=== PATIENT | male | born 1930 | race Caucasian/White ===

== ENCOUNTER 2017-05-15 10:30 | Emergency (ER) | payer MEDICARE, MEDICAID ==
--- NOTE | 2017-05-15 10:33 | EDM.PDOC ---
ED HPI GENERAL MEDICAL PROBLEM - General Chief Complaint: Respiratory Problem Stated Complaint: BY AMBULANCE Time Seen by Provider: 05/15/17 10:50 Source of Information: Reports: Patient, RN, RN Notes Reviewed - History of Present Illness INITIAL COMMENTS - FREE TEXT/NARRATIVE: Patient presents to ER per [facility] with c/o increased weakness. Family present states the patient has a history of COPD and diabetes. They states he coughs frequently, and has not been coughing any more than normal. Family and patient denies any sputum production. Patient c/o increased sob at times. admits to a temp of 99.3 this morning, but is afebrile at this time. Patient states he has not smoked for 2 days as he has been too weak to get outside to smoke. Patient denies chest pain, N/V/D. states am BS was 154 today, which is high for him. Onset: Gradual Onset Date: 05/13/17 Severity: Moderate Improves with: Reports: None Worsens with: Reports: None Associated Symptoms: Reports: Cough, Fever/Chills, Malaise, Shortness of Breath , Weakness - Related Data Allergies Allergy/AdvReac Type Severity Reaction Status Date / Time No Known Allergies Allergy Verified 05/15/17 10:37 Home Meds: Home Meds Furosemide [Lasix] 20 mg PO DAILY #30 tablet 11/04/13 [Rx] Glimepiride [Amaryl] 2 mg PO BRK #30 tablet 11/04/13 [Rx] Insulin Glarg,Human.Rec.Analog [Lantus Solostar] 15 unit SUBCUT DAILY #5 pen [Rx] Potassium Chloride [Klor-Con 10] 10 meq PO DAILY #30 tablet.er 11/04/13 [Rx] Albuterol [Proventil Neb Soln] 2.5 mg NEB Q4HR PRN 11/27/15 [History] Aspirin [Adult Low Dose Aspirin EC] 81 mg PO BEDTIME 11/27/15 [History] Lisinopril [Prinivil] 2.5 mg PO DAILY 11/27/15 [History] Metoprolol Tartrate 12.5 mg PO BID 11/27/15 [History] Budesonide [Pulmicort] 0.5 mg NEB BIDRT #60 neb 11/30/15 [Rx] Magnesium Oxide [Magnesium] 400 mg PO BEDTIME 05/15/17 [History] Past Medical History HEENT History: Reports: None Cardiovascular History: Reports: None Respiratory History: Reports: COPD Gastrointestinal History: Reports: None Genitourinary History: Reports: Prostate Disorder Musculoskeletal History: Reports: None Endocrine/Metabolic History: Reports: Diabetes, Type II Hematologic History: Reports: None Oncologic (Cancer) History: Reports: Basal Cell Carcinoma, Prostate Dermatologic History: Reports: Other (See Below) Other Dermatologic History: basal cell carcinoma - Infectious Disease History Infectious Disease History: Reports: None - Past Surgical History GI Surgical History: Reports: Hernia Repair/Other Social & Family History - Family History Cardiac: Reports: Hypertension, CT Oncologic: Reports: Other (See Below) Other Oncologic Family History: stomach - Tobacco Use Smoking Status *Q: Heavy Tobacco Smoker Years of Tobacco use: 55 Packs/Tins Daily: 1 Used Tobacco, but Quit: No Month Tobacco Last Used: recent Second Hand Smoke Exposure: No - Alcohol Use Days Per Week of Alcohol Use: 0 - Recreational Drug Use Recreational Drug Use: No ED ROS GENERAL - Review of Systems Review Of Systems: ROS reveals no pertinent complaints other than HPI. ED EXAM, GENERAL - Physical Exam Exam: See Below Exam Limited By: No Limitations General Appearance: Alert, WD/WN, Mild Distress Eye Exam: Bilateral Eye: Normal Inspection Ears: Normal External Exam, Hearing Grossly Normal Ear Exam: Bilateral Ear: TM normal Nose: Normal Inspection, Normal Mucosa, No Blood Throat/Mouth: Normal Inspection, Normal Lips, Normal Voice, No Airway Compromise Head: Atraumatic, Normocephalic Neck: Normal Inspection, Supple, Non-Tender, Full Range of Motion Cardiovascular: Normal Peripheral Pulses GI/Abdominal: Normal Bowel Sounds, Soft, Non-Tender, No Organomegaly, No Distention, No Abnormal Bruit, No Mass (Male) Exam: Deferred Rectal (Males) Exam: Deferred Back Exam: Normal Inspection, Full Range of Motion Extremities: Normal Inspection, Normal Range of Motion, Non-Tender, No Pedal Edema, Normal Capillary Refill Neurological: Alert, Oriented, Normal Cognition, No Motor/Sensory Deficits Psychiatric: Normal Affect, Normal Mood Skin Exam: Warm, Dry, Intact, Normal Color, No Rash Lymphatic: No Adenopathy EKG INTERPRETATION EKG Date: 05/15/17 Time: 12:03 Rhythm: NSR [place]: Normal P-Wave: Present QRS: Normal ST-T: Normal QT: Normal Course - Vital Signs Last Recorded V/S: Last Vital Signs Temp 97.5 F 05/15/17 10:51 Pulse 66 05/15/17 12:05 Resp 20 05/15/17 11:51 BP 130/73 05/15/17 11:51 Pulse Ox 99 05/15/17 12:05 - Orders/Labs/Meds Labs: Laboratory Tests 05/15/17 05/15/17 05/15/17 Range/Units 10:55 10:55 10:55 WBC 9.7 (5.0-10.0) 10^3/uL RBC 4.33 L (4.6-6.2) 10^6/uL Hgb 13.4 L (14.0-18.0) g/dL Hct 40.0 (40.0-54.0) % MCV 92.4 (80-100) fL MCH 30.9 (27.0-34.0) pg MCHC 33.5 (33.0-35.0) g/dL Plt Count 248 (150-450) 10^3/uL Neut % (Auto) 70.9 (42.2-75.2) % Lymph % (Auto) 18.9 L (20.5-50.1) % [place] % (Auto) 9.2 H (2-8) % Eos % (Auto) 0.8 L (1.0-3.0) % Baso % (Auto) 0.2 (0.0-1.0) % Sodium 134 L (135-145) mmol/L Potassium 4.5 (3.6-5.0) mmol/L Chloride 97 L (101-111) mmol/L Carbon Dioxide 28.0 (21.0-31.0) mmol/L Anion Gap 13.5 BUN 22 H (7-18) mg/dL Creatinine 1.1 (0.6-1.3) mg/dL Est Cr Clr Drug Dosing 56.49 mL/min Estimated GFR (MDRD) > 60 BUN/Creatinine Ratio 20.00 Glucose 119 H (74-105) mg/dL Lactic Acid 1.3 (0.5-2.2) mmol/L Calcium 8.9 (8.4-10.2) mg/dl Total Bilirubin 0.8 (0.2-1.0) mg/dL AST 24 (10-42) IU/L ALT 16 (10-60) IU/L Alkaline Phosphatase 60 (42-121) IU/L Troponin I (0.00-0.02) ng/ml Total Protein 7.1 (6.7-8.2) g/dl Albumin 3.9 (3.2-5.5) g/dl Globulin 3.2 Albumin/Globulin Ratio 1.22 Urine Color (YELLOW) Urine Appearance (CLEAR) Urine pH (5.0-9.0) Ur Specific [place] (1.005-1.030) Urine Protein (NEGATIVE) Urine Glucose (UA) (NEGATIVE) Urine Ketones (NEGATIVE) Urine Occult Blood (NEGATIVE) Urine Nitrite (NEGATIVE) Urine Bilirubin (NEGATIVE) Urine Urobilinogen (0.2-1.0) mg/dL Ur Leukocyte Esterase (NEGATIVE) Urine RBC /HPF Urine WBC (0-5/HPF) /HPF Ur Epithelial Cells /HPF Urine Bacteria (0-FEW/HPF) /HPF 05/15/17 05/15/17 Range/Units 10:55 11:33 WBC (5.0-10.0) 10^3/uL RBC (4.6-6.2) 10^6/uL Hgb (14.0-18.0) g/dL Hct (40.0-54.0) % MCV (80-100) fL MCH (27.0-34.0) pg MCHC (33.0-35.0) g/dL Plt Count (150-450) 10^3/uL Neut % (Auto) (42.2-75.2) % Lymph % (Auto) (20.5-50.1) % [place] % (Auto) (2-8) % Eos % (Auto) (1.0-3.0) % Baso % (Auto) (0.0-1.0) % Sodium (135-145) mmol/L Potassium (3.6-5.0) mmol/L Chloride (101-111) mmol/L Carbon Dioxide (21.0-31.0) mmol/L Anion Gap BUN (7-18) mg/dL Creatinine (0.6-1.3) mg/dL Est Cr Clr Drug Dosing mL/min Estimated GFR (MDRD) BUN/Creatinine Ratio Glucose (74-105) mg/dL Lactic Acid (0.5-2.2) mmol/L Calcium (8.4-10.2) mg/dl Total Bilirubin (0.2-1.0) mg/dL AST (10-42) IU/L ALT (10-60) IU/L Alkaline Phosphatase (42-121) IU/L Troponin I < 0.02 (0.00-0.02) ng/ml Total Protein (6.7-8.2) g/dl Albumin (3.2-5.5) g/dl Globulin Albumin/Globulin Ratio Urine Color Yellow (YELLOW) Urine Appearance Slightly cloudy (CLEAR) Urine pH 6.5 (5.0-9.0) Ur Specific [place] 1.015 (1.005-1.030) Urine Protein Trace H (NEGATIVE) Urine Glucose (UA) Negative (NEGATIVE) Urine Ketones Negative (NEGATIVE) Urine Occult Blood Trace-intact H (NEGATIVE) Urine Nitrite Negative (NEGATIVE) Urine Bilirubin Negative (NEGATIVE) Urine Urobilinogen 0.2 (0.2-1.0) mg/dL Ur Leukocyte Esterase Negative (NEGATIVE) Urine RBC 5-10 H /HPF Urine WBC 0-5 (0-5/HPF) /HPF Ur Epithelial Cells Rare /HPF Urine Bacteria Many H (0-FEW/HPF) /HPF Meds: Medications Discontinued Medications Generic Name Dose Route Start Last Admin Trade Name Freq PRN Reason Stop Dose Admin Albuterol/Ipratropium 3 ml 05/15/17 11:54 05/15/17 12:02 Duoneb 3.0-0.5 Mg/3 Ml NEB 05/15/17 11:55 3 ml ONETIME ONE Administration Ceftriaxone Sodium 1 gm/ 0 gm 05/15/17 12:10 05/15/17 12:19 Lidocaine HCl 2.1 ml IM 05/15/17 12:11 Not Given ONETIME ONE Ceftriaxone Sodium 1 gm/ 50 mls @ 100 mls/hr 05/15/17 12:13 05/15/17 12:18 Sodium Chloride IV 05/15/17 12:42 100 mls/hr ONETIME ONE Administration - Radiology Interpretation Free Text/Narrative:: Chest xray: COPD and pleural parenchymal scarring. No acute new cardiopulmonary abnormality since March 1016. See rad report Departure - Departure Time of Disposition: 13:00 Disposition: Home, Self-Care 01 Condition: Fair Clinical Impression: COPD (chronic obstructive pulmonary disease) Qualifiers: COPD type: COPD with acute exacerbation Qualified Code(s): J44.1 - Chronic obstructive pulmonary disease with (acute) exacerbation Pneumonia Qualifiers: Pneumonia type: due to unspecified organism Laterality: bilateral Lung location : lower lobe of lung Qualified Code(s): J18.9 - Pneumonia, unspecified organism - Discharge Information Instructions: Chronic Obstructive Pulmonary Disease Exacerbation, [id number] , Shortness of Breath, [id number], Community-Acquired Pneumonia, Adult, Easy- to-Read Referrals: Rosa M Conley MD [Primary Care Provider] - Forms: ED Department Discharge Additional Instructions: Azithromycin 250mg orally. Two tabs once today. One tab once daily for 4 days. Tessalon 100mg 1-2 caps orally three times daily as needed for cough. Robitussin AC over the counter as directed at night. Rest Follow up with primary care provider in 2-3 days.
[2017-05-15 11:25] LABS: CHLORIDE,CL 97 mmol/L (101-111); SODIUM,NA 134 mmol/L (135-145)
[2017-05-15 11:52] VITALS: BP 130/73
[2017-05-15] MEDS ORDERED: Albuterol/Ipratropium 3.0-0.5 MG/3 ML Neb Soln NEB ONE (11:54)
[2017-05-15] MEDS ORDERED: cefTRIAXone 1 GM, Lidocaine 1% 2.1 ML IM ONE ×2 (12:10)
[2017-05-15] MEDS ORDERED: cefTRIAXone 1 GM in Sodium Chloride 0.9% 50 ML IV ONE (12:13)
--- NOTE | 2017-05-15 13:03 | CR ---
CLINICAL HISTORY: 86-year-old male with shortness of breath. INTERPRETATION: No acute new cardiopulmonary abnormality identified in the interval since March 15 016 exam. Prominent proximal pulmonary artery segments and bibasilar atelectasis/fibrosis that was evident on e arlier exam. No cephalization of flow, signs of alveolar edema, cardiomegaly or dependent pleural effusion. No new lung mass, hilar lymphadenopathy or focal lobar pneumonia. CONCLUSION: COPD and pleural parenchymal scarring. No acute new cardiopulmonary abnormality since Mar.
--- NOTE | 2017-05-18 08:46 | EKG ---
05/15/2017- SAMUEL ABAD - EKG per my reading shows sinus rhythm at a rate of 77 with PACs. [facility] /[id number]
== END 2017-05-15 13:04 | disposition home or self-care (01) ==
LOC: DL.ED 10:30
DX: J44.1 Chronic obstructive pulmonary disease with (acute) exacerbation (principal); J18.9 Pneumonia, unspecified organism; E11.9 Type 2 diabetes mellitus without complications; Z85.46 Personal history of malignant neoplasm of prostate; Z85.828 Personal history of other malignant neoplasm of skin; F17.210 Nicotine dependence, cigarettes, uncomplicated; Z98.890 Other specified postprocedural states; Z79.82 Long term (current) use of aspirin; Z79.899 Other long term (current) drug therapy; Z79.4 Long term (current) use of insulin
CPT/HCPCS: 36415; 71020; 80053; 81001; 83605; 84484; 85025; 87040; 93005; 93010; 94640; 96365; 99285; J0696; J7050; 99284

== ENCOUNTER 2018-10-02 14:27 | Emergency (ER) | payer MEDICARE, MEDICAID ==
[~2018-10-02 14:27] MED LIST: Sodium Chloride 0.9% 10 ML Syringe FLUSH PRN
[2018-10-02 14:34] VITALS: BP 109/84
--- NOTE | 2018-10-02 14:45 | CR ---
Clinical history: 87-year-old male with chest pain Interpretation: Chronic platelike atelectasis right upper lobe and some middle lobe atelectasis/fibrosis accentuated by less than optimal inspiratory effort. No new signs of heart failure lung mass or focal lobar pneumonia this AP film is compared to PA chest film to May 2017. Normal cardiac silhouette and left-sided aortic arch. No pneumothorax. CONCLUSION: No acute new cardiopulmonary abnormality.
[2018-10-02 14:52] LABS: ANION GAP 15.1
[2018-10-02] MEDS ORDERED: methylPREDNISolone Sodium Succinate 125 MG/2 ML SDV IVPUSH ONE (15:17)
--- NOTE | 2018-10-02 15:24 | EDM.PDOC ---
ED HPI GENERAL MEDICAL PROBLEM - General Chief Complaint: Respiratory Problem Stated Complaint: POSSIBLE PNEUMONIA Time Seen by Provider: 10/02/18 14:40 Source of Information: Reports: Patient, EMS, EMS Notes Reviewed, RN, RN Notes Reviewed History Limitations: Reports: No Limitations - History of Present Illness INITIAL COMMENTS - FREE TEXT/NARRATIVE: Pt to ER per [facility] with c/o sore throat, SOB, cough producing white phlegm. Pt and family states that the patient is always SOB as he has a hx of COPD, on continuous O2 at home. Patient's daughter recently had Strep Throat. Patient family admits to low grade fever, and edema to ankles and feet bilaterally. Hx of CHF. Patient denies N/V, but admits to diarrhea today. Denies chest pain. Onset: Gradual - Related Data Allergies Allergy/AdvReac Type Severity Reaction Status Date / Time No Known Allergies Allergy Verified 10/02/18 14:30 Home Meds: Home Meds Furosemide [Lasix] 20 mg PO DAILY #30 tablet 11/04/13 [Rx] Glimepiride [Amaryl] 2 mg PO BRK #30 tablet 11/04/13 [Rx] Insulin Glarg,Human.Rec.Analog [Lantus Solostar] 15 unit SUBCUT DAILY #5 pen [Rx] Potassium Chloride [Klor-Con 10] 10 meq PO DAILY #30 tablet.er 11/04/13 [Rx] Albuterol [Proventil Neb Soln] 2.5 mg NEB Q4HR PRN 11/27/15 [History] Aspirin [Adult Low Dose Aspirin EC] 81 mg PO BEDTIME 11/27/15 [History] Lisinopril [Prinivil] 2.5 mg PO DAILY 11/27/15 [History] Metoprolol Tartrate 12.5 mg PO BID 11/27/15 [History] Budesonide [Pulmicort] 0.5 mg NEB BIDRT #60 neb 11/30/15 [Rx] Magnesium Oxide [Magnesium] 400 mg PO BEDTIME 05/15/17 [History] Past Medical History HEENT History: Reports: None Cardiovascular History: Reports: None, Heart Failure Respiratory History: Reports: COPD Gastrointestinal History: Reports: None Genitourinary History: Reports: Prostate Disorder Musculoskeletal History: Reports: None Neurological History: Reports: Other (See Below) Other Neuro History: unspecified palsy Endocrine/Metabolic History: Reports: Diabetes, Type II Hematologic History: Reports: None Oncologic (Cancer) History: Reports: Basal Cell Carcinoma, Prostate Dermatologic History: Reports: Other (See Below) Other Dermatologic History: basal cell carcinoma - Infectious Disease History Infectious Disease History: Reports: None - Past Surgical History GI Surgical History: Reports: Hernia Repair/Other Social & Family History - Family History Family Medical History: Unobtainable Cardiac: Reports: Hypertension, [place] Oncologic: Reports: Other (See Below) Other Oncologic Family History: stomach - Tobacco Use Smoking Status *Q: Current Every Day Smoker Years of Tobacco use: 60 Packs/Tins Daily: 0.5 - Caffeine Use Caffeine Use: Reports: Coffee - Recreational Drug Use Recreational Drug Use: No ED ROS GENERAL - Review of Systems Review Of Systems: ROS reveals no pertinent complaints other than HPI. ED EXAM, GENERAL - Physical Exam Exam: See Below Exam Limited By: No Limitations General Appearance: Alert, WD/WN, Moderate Distress (coughing) Eye Exam: Bilateral Eye: EOMI, Normal Inspection Ears: Normal External Exam, Hearing Grossly Normal Nose: Normal Inspection Throat/Mouth: Normal Voice, No Airway Compromise, Other (oropharynx erythematous ) Head: Atraumatic, Normocephalic Neck: Normal Inspection, Supple, Non-Tender, Full Range of Motion Respiratory/Chest: Decreased Breath Sounds, Crackles (throughout) Cardiovascular: Normal Peripheral Pulses, Regular Rate, Rhythm, No Murmur, No Rub. No: No Edema Peripheral Pulses: 1+: Dorsalis Pedis (L), Dorsalis Pedis (R), 2+: Radial (L), Radial (R) GI/Abdominal: Normal Bowel Sounds, Soft, Non-Tender (Male) Exam: Deferred Rectal (Males) Exam: Deferred Back Exam: Normal Inspection, Decreased Range of Motion Extremities: Pedal Edema (bilat, +2-3) Neurological: Alert, Oriented, Normal Cognition Psychiatric: Normal Affect, Normal Mood Skin Exam: Warm, Dry, Intact, Normal Color, No Rash Lymphatic: No Adenopathy Course - Vital Signs Last Recorded V/S: Last Vital Signs Temp 97.1 F 10/02/18 14:25 Pulse 78 10/02/18 14:25 Resp 20 10/02/18 14:25 BP 109/84 10/02/18 14:25 Pulse Ox 97 10/02/18 14:25 - Orders/Labs/Meds Orders: Active Orders 24 hr Category Date Time Status EKG Documentation Completion [RC] STAT Care 10/02/18 14:27 Active Peripheral IV Care [RC] . DIRECTED Care 10/02/18 14:27 Active CULTURE BLOOD [] Stat Lab 10/02/18 14:25 Received CULTURE BLOOD [] Stat Lab 10/02/18 14:47 Received CULTURE STREP A CONFIRMATION [] Stat Lab 10/02/18 14:20 Results STREP SCRN A RAPID W CULT CONF [] Stat Lab 10/02/18 14:20 Results Blood Culture x2 Reflex Set [OM.PC] Stat Oth 10/02/18 14:27 Ordered Peripheral IV Insertion Adult [OM.PC] Stat Oth 10/02/18 14:26 Ordered Labs: Laboratory Tests 10/02/18 10/02/18 10/02/18 Range/Units 14:25 14:25 14:25 WBC 7.0 (5.0-10.0) 10^3/uL RBC 4.32 L (4.6-6.2) 10^6/uL Hgb 13.0 L (14.0-18.0) g/dL Hct 39.5 L (40.0-54.0) % MCV 91.4 (80-100) fL MCH 30.1 (27.0-34.0) pg MCHC 32.9 L (33.0-35.0) g/dL Plt Count 207 (150-450) 10^3/uL Neut % (Auto) 73.3 (42.2-75.2) % Lymph % (Auto) 14.2 L (20.5-50.1) % [place] % (Auto) 10.2 H (2-8) % Eos % (Auto) 1.9 (1.0-3.0) % Baso % (Auto) 0.4 (0.0-1.0) % Sodium 136 (135-145) mmol/L Potassium 4.1 (3.6-5.0) mmol/L Chloride 101 (101-111) mmol/L Carbon Dioxide 24.0 (21.0-31.0) mmol/L Anion Gap 15.1 BUN 20 H (7-18) mg/dL Creatinine 1.2 (0.6-1.3) mg/dL Est Cr Clr Drug Dosing 49.40 mL/min Estimated GFR (MDRD) 58 BUN/Creatinine Ratio 16.66 Glucose 90 (74-105) mg/dL Lactic Acid 2.2 (0.5-2.2) mmol/L Calcium 8.5 (8.4-10.2) mg/dl Total Bilirubin 0.5 (0.2-1.0) mg/dL AST 32 (10-42) IU/L ALT 25 (10-60) IU/L Alkaline Phosphatase 64 (42-121) IU/L B-Natriuretic Peptide 34 (0-100) pg/ml Total Protein 6.8 (6.7-8.2) g/dl Albumin 3.6 (3.2-5.5) g/dl Globulin 3.2 Albumin/Globulin Ratio 1.13 Rapid Strep: Negative Influenza A & B: Negative Meds: Medications Discontinued Medications Generic Name Dose Route Start Last Admin Trade Name Freq PRN Reason Stop Dose Admin Ceftriaxone Sodium 1,000 mg/ 100 mls @ 200 mls/hr 10/02/18 15:17 10/02/18 15: 34 Sodium Chloride IV 10/02/18 15:46 200 mls/hr ONETIME ONE Administration Methylprednisolone Sodium Succinate 125 mg 10/02/18 15:17 Solu-Medrol IVPUSH 10/02/18 15:18 ONETIME ONE Sodium Chloride 10 ml 10/02/18 14:26 10/02/18 14:55 Saline Flush FLUSH 10 ml ASDIRECTED PRN Administration Keep Vein Open - Radiology Interpretation Free Text/Narrative:: Chest xray: No acute findings See rad report Departure - Departure Time of Disposition: 15:23 Disposition: Home, Self-Care 01 Condition: Fair Clinical Impression: COPD with exacerbation COPD (chronic obstructive pulmonary disease) Qualifiers: COPD type: unspecified COPD Qualified Code(s): J44.9 - Chronic obstructive pulmonary disease, unspecified - Discharge Information *PRESCRIPTION DRUG MONITORING PROGRAM REVIEWED*: No *COPY OF PRESCRIPTION DRUG MONITORING REPORT IN PATIENT SIVA: No Instructions: Chronic Obstructive Pulmonary Disease Exacerbation, [id number] , Shortness of Breath, Adult, [id number], Chronic Obstructive Pulmonary Disease, [id number], Upper Respiratory Infection, Adult, [id number] Referrals: Rosa M Conley MD [Primary Care Provider] - Forms: ED Department Discharge Additional Instructions: RX: Magic Mouthwash, Tessalon Perles, Azithromycin Follow up with your primary care facility May use Tylenol and/or Ibuprofen as directed for fever/pain - My Orders Last 24 Hours: My Active Orders 10/02/18 14:20 CULTURE STREP A CONFIRMATION [RM] Stat STREP SCRN A RAPID W CULT CONF [RM] Stat 10/02/18 14:25 CULTURE BLOOD [BC] Stat 10/02/18 14:26 Peripheral IV Insertion Adult [OM.PC] Stat 10/02/18 14:27 EKG Documentation Completion [RC] STAT Peripheral IV Care [RC] . DIRECTED Blood Culture x2 Reflex Set [OM.PC] Stat 10/02/18 14:47 CULTURE BLOOD [BC] Stat - Assessment/Plan Last 24 Hours: My Active Orders 10/02/18 14:20 CULTURE STREP A CONFIRMATION [RM] Stat STREP SCRN A RAPID W CULT CONF [RM] Stat 10/02/18 14:25 CULTURE BLOOD [BC] Stat 10/02/18 14:26 Peripheral IV Insertion Adult [OM.PC] Stat 10/02/18 14:27 EKG Documentation Completion [RC] STAT Peripheral IV Care [RC] . DIRECTED Blood Culture x2 Reflex Set [OM.PC] Stat 10/02/18 14:47 CULTURE BLOOD [BC] Stat
== END 2018-10-02 15:57 | disposition home or self-care (01) ==
LOC: EEVIPCON 14:27 → DL.ED 14:27
DX: J44.1 Chronic obstructive pulmonary disease with (acute) exacerbation (principal); E11.9 Type 2 diabetes mellitus without complications; F17.210 Nicotine dependence, cigarettes, uncomplicated; Z79.899 Other long term (current) drug therapy; Z79.82 Long term (current) use of aspirin; Z79.84 Long term (current) use of oral hypoglycemic drugs
CPT/HCPCS: 36415; 71045; 80053; 83605; 83880; 85025; 87040; 87077; 87081; 87186; 87430; 87804; 93005; 99285; J0696; J7050

== ENCOUNTER 2018-12-25 18:00 | Inpatient (IN) | payer MEDICARE, MEDICAID ==
[2018-12-25] MEDS ORDERED: Albuterol/Ipratropium 3.0-0.5 MG/3 ML Neb Soln NEB ONE (18:06)
--- NOTE | 2018-12-25 18:12 | EDM.PDOC ---
Scribed by Sunshine Robert 12/25/18 2946 for Josué Pedraza PA ED HPI GENERAL MEDICAL PROBLEM - General Chief Complaint: Respiratory Problem Stated Complaint: AMBULANCE/RESPIRATORY Time Seen by Provider: 12/25/18 18:03 Source of Information: Reports: Patient, EMS, EMS Notes Reviewed, RN, RN Notes Reviewed History Limitations: Reports: No Limitations - History of Present Illness INITIAL COMMENTS - FREE TEXT/NARRATIVE: This 88 yo male patient was brought to the ED by [facility] due to increased shortness of breath. The patient reports his shortness of breath started to get much worse today. The patient reports he has been taking all of his medications as prescribed. The patient reports his last breathing treatment was a 1500 today. The patient reports he has also been taking Mucinex. 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 Treatments - Related Data Allergies Allergy/AdvReac Type Severity Reaction Status Date / Time No Known Allergies Allergy Verified 12/25/18 18:17 Home Meds: Home Meds Furosemide [Lasix] 20 mg PO DAILY #30 tablet 11/04/13 [Rx] Glimepiride [Amaryl] 2 mg PO BRK #30 tablet 11/04/13 [Rx] Insulin Glarg,Human.Rec.Analog [Lantus Solostar] 15 unit SUBCUT DAILY #5 pen [Rx] Potassium Chloride [Klor-Con 10] 10 meq PO DAILY #30 tablet.er 11/04/13 [Rx] Albuterol [Proventil Neb Soln] 2.5 mg NEB Q4HR PRN 11/27/15 [History] Aspirin [Adult Low Dose Aspirin EC] 81 mg PO BEDTIME 11/27/15 [History] Lisinopril [Prinivil] 2.5 mg PO DAILY 11/27/15 [History] Metoprolol Tartrate 12.5 mg PO BID 11/27/15 [History] Magnesium Oxide [Magnesium] 400 mg PO BEDTIME 05/15/17 [History] Budesonide [Pulmicort] 0.5 mg NEB BID 12/25/18 [History] Past Medical History HEENT History: Reports: None Cardiovascular History: Reports: None, Heart Failure Respiratory History: Reports: COPD Gastrointestinal History: Reports: None Genitourinary History: Reports: Prostate Disorder Musculoskeletal History: Reports: None Neurological History: Reports: Other (See Below) Other Neuro History: unspecified palsy Endocrine/Metabolic History: Reports: Diabetes, Type II Hematologic History: Reports: None Oncologic (Cancer) History: Reports: Basal Cell Carcinoma, Prostate Dermatologic History: Reports: Other (See Below) Other Dermatologic History: basal cell carcinoma - Infectious Disease History Infectious Disease History: Reports: None - Past Surgical History GI Surgical History: Reports: Hernia Repair/Other Social & Family History - Family History Family Medical History: Unobtainable Cardiac: Reports: Hypertension, [place] Oncologic: Reports: Other (See Below) Other Oncologic Family History: stomach - Caffeine Use Caffeine Use: Reports: Coffee ED ROS GENERAL - Review of Systems Review Of Systems: ROS reveals no pertinent complaints other than HPI. ED EXAM, GENERAL - Physical Exam Exam: See Below Exam Limited By: No Limitations General Appearance: Alert, WD/WN, Moderate Distress Eye Exam: Bilateral Eye: EOMI, Normal Inspection, PERRL Ears: Normal External Exam, Normal Canal, Hearing Grossly Normal, Normal TMs Nose: Normal Inspection, Normal Mucosa, No Blood Throat/Mouth: Normal Inspection, Normal Lips, Normal Teeth, Normal Gums, Normal Oropharynx, Normal Voice, No Airway Compromise Head: Atraumatic, Normocephalic Neck: Normal Inspection, Supple, Non-Tender, Full Range of Motion Respiratory/Chest: Decreased Breath Sounds, Rhonchi Cardiovascular: No Gallop, No JVD, No Murmur, No Rub, Tachycardia GI/Abdominal: Normal Bowel Sounds, Soft, Non-Tender, No Organomegaly, No Distention, No Abnormal Bruit, No Mass (Male) Exam: Deferred Rectal (Males) Exam: Deferred Back Exam: Normal Inspection, Full Range of Motion, NT Extremities: Normal Range of Motion, Pedal Edema Neurological: Alert, Oriented, CN II-XII Intact, Normal Cognition Psychiatric: Normal Affect, Normal Mood Skin Exam: Warm, Dry, Intact, Normal Color, No Rash Lymphatic: No Adenopathy Course - Vital Signs Last Recorded V/S: Last Vital Signs Temp 37.1 C 12/25/18 18:01 Pulse 104 H 12/25/18 18:01 Resp 32 H 12/25/18 18:01 BP 165/98 H 12/25/18 18:01 Pulse Ox 94 L 12/25/18 18:01 - Orders/Labs/Meds Orders: Active Orders 24 hr Category Date Time Status EKG Documentation Completion [RC] URGENT Care 12/25/18 18:05 Ordered RT Aerosol Therapy [RC] ASDIRECTED Care 12/25/18 18:06 Ordered Chest 1V Frontal [CR] Urgent Exams 12/25/18 18:06 Ordered CULTURE BLOOD [BC] Stat Lab 12/25/18 18:05 Ordered CULTURE BLOOD [BC] Stat Lab 12/25/18 18:05 Ordered Azithromycin [Zithromax] 500 mg Med 12/25/18 19:05 Ordered Sodium Chloride 0.9% [Normal Saline] 250 ml IV ONETIME cefTRIAXone [Rocephin] 1 gm Med 12/25/18 19:05 Ordered Sodium Chloride 0.9% [Normal Saline] 50 ml IV ONETIME Blood Culture x2 Reflex Set [OM.PC] Stat Oth 12/25/18 18:05 Ordered Labs: Laboratory Tests 12/25/18 12/25/18 12/25/18 Range/Units 18:15 18:15 18:15 WBC 17.5 H (5.0-10.0) 10^3/uL RBC 4.63 (4.6-6.2) 10^6/uL Hgb 14.2 (14.0-18.0) g/dL Hct 42.5 (40.0-54.0) % MCV 91.8 (80-100) fL MCH 30.7 (27.0-34.0) pg MCHC 33.4 (33.0-35.0) g/dL Plt Count 227 (150-450) 10^3/uL Neut % (Auto) 86.1 H (42.2-75.2) % Lymph % (Auto) 7.5 L (20.5-50.1) % [place] % (Auto) 5.5 (2-8) % Eos % (Auto) 0.7 L (1.0-3.0) % Baso % (Auto) 0.2 (0.0-1.0) % Sodium (135-145) mmol/L Potassium (3.6-5.0) mmol/L Chloride (101-111) mmol/L Carbon Dioxide (21.0-31.0) mmol/L Anion Gap BUN (7-18) mg/dL Creatinine (0.6-1.3) mg/dL Est Cr Clr Drug Dosing mL/min Estimated GFR (MDRD) BUN/Creatinine Ratio Glucose (74-105) mg/dL Lactic Acid 1.4 (0.5-2.2) mmol/L Calcium (8.4-10.2) mg/dl Total Bilirubin (0.2-1.0) mg/dL AST (10-42) IU/L ALT (10-60) IU/L Alkaline Phosphatase (42-121) IU/L Troponin I (0.00-0.02) ng/ml B-Natriuretic Peptide 15 (0-100) pg/ml Total Protein (6.7-8.2) g/dl Albumin (3.2-5.5) g/dl Globulin Albumin/Globulin Ratio 05/14/19 Range/Units 18:15 WBC (5.0-10.0) 10^3/uL RBC (4.6-6.2) 10^6/uL Hgb (14.0-18.0) g/dL Hct (40.0-54.0) % MCV (80-100) fL MCH (27.0-34.0) pg MCHC (33.0-35.0) g/dL Plt Count (150-450) 10^3/uL Neut % (Auto) (42.2-75.2) % Lymph % (Auto) (20.5-50.1) % [place] % (Auto) (2-8) % Eos % (Auto) (1.0-3.0) % Baso % (Auto) (0.0-1.0) % Sodium 136 (135-145) mmol/L Potassium 4.5 (3.6-5.0) mmol/L Chloride 98 L (101-111) mmol/L Carbon Dioxide 28.0 (21.0-31.0) mmol/L Anion Gap 14.5 BUN 21 H (7-18) mg/dL Creatinine 1.1 (0.6-1.3) mg/dL Est Cr Clr Drug Dosing 52.91 mL/min Estimated GFR (MDRD) > 60 BUN/Creatinine Ratio 19.09 Glucose 144 H (74-105) mg/dL Lactic Acid (0.5-2.2) mmol/L Calcium 8.6 (8.4-10.2) mg/dl Total Bilirubin 0.6 (0.2-1.0) mg/dL AST 24 (10-42) IU/L ALT 20 (10-60) IU/L Alkaline Phosphatase 66 (42-121) IU/L Troponin I < 0.02 (0.00-0.02) ng/ml B-Natriuretic Peptide (0-100) pg/ml Total Protein 7.5 (6.7-8.2) g/dl Albumin 4.0 (3.2-5.5) g/dl Globulin 3.5 Albumin/Globulin Ratio 1.14 Meds: Medications Discontinued Medications Generic Name Dose Route Start Last Admin Trade Name Freq PRN Reason Stop Dose Admin Albuterol/Ipratropium 3 ml 12/25/18 18:06 12/25/18 18:06 Duoneb 3.0-0.5 Mg/3 Ml NEB 12/25/18 18:07 3 ml ONETIME ONE Administration Departure - Departure Time of Disposition: 19:06 Disposition: Admitted As Inpatient 68 Condition: Fair Clinical Impression: Community acquired pneumonia Qualifiers: Laterality: unspecified laterality Qualified Code(s): J18.9 - Pneumonia, unspecified organism - Discharge Information *PRESCRIPTION DRUG MONITORING PROGRAM REVIEWED*: Not Applicable *COPY OF PRESCRIPTION DRUG MONITORING REPORT IN PATIENT SIVA: Not Applicable Referrals: Rosa M Conley MD [Primary Care Provider] - Forms: ED Department Discharge Care Plan Goals: Discussed the examination, history, lab, EKG and x-ray results with Dr. Sanderson. Dr. Sanderson accepted the patient for continued evaluation and management as an acute inpatient at [facility]. The patient was started on IV Rocephin and IV Azithromycin prior to admission. - My Orders Last 24 Hours: My Active Orders 12/25/18 18:05 EKG Documentation Completion [RC] URGENT CULTURE BLOOD [BC] Stat CULTURE BLOOD [BC] Stat Blood Culture x2 Reflex Set [OM.PC] Stat 12/25/18 18:06 RT Aerosol Therapy [RC] ASDIRECTED Chest 1V Frontal [CR] Urgent 12/25/18 19:05 Azithromycin [Zithromax] 500 mg Sodium Chloride 0.9% [Normal Saline] 250 ml IV ONETIME cefTRIAXone [Rocephin] 1 gm Sodium Chloride 0.9% [Normal Saline] 50 ml IV ONETIME - Assessment/Plan Last 24 Hours: My Active Orders 12/25/18 18:05 EKG Documentation Completion [RC] URGENT CULTURE BLOOD [BC] Stat CULTURE BLOOD [BC] Stat Blood Culture x2 Reflex Set [OM.PC] Stat 12/25/18 18:06 RT Aerosol Therapy [RC] ASDIRECTED Chest 1V Frontal [CR] Urgent 12/25/18 19:05 Azithromycin [Zithromax] 500 mg Sodium Chloride 0.9% [Normal Saline] 250 ml IV ONETIME cefTRIAXone [Rocephin] 1 gm Sodium Chloride 0.9% [Normal Saline] 50 ml IV ONETIME I have read and agree with the documentation that has been completed regarding this visit. By signing this record, I attest that the documentation was completed in my physical presence and is an accurate record of the encounter.
[2018-12-25 18:50] LABS: ANION GAP 14.5; CHLORIDE,CL 98 mmol/L (101-111); SODIUM,NA 136 mmol/L (135-145)
[2018-12-25] MEDS ORDERED: cefTRIAXone 1 GM in Sodium Chloride 0.9% 50 ML IV ONE (19:05)
[2018-12-25] MEDS ORDERED: Azithromycin 500 MG in Sodium Chloride 0.9% 250 ML IV ONE (19:05)
--- NOTE | 2018-12-25 19:56 | PCM.HP ---
H&P History of Present Illness - General Date of Service: 12/25/18 Admit Problem/Dx: Shortness of breath - History of Present Illness Initial Comments - Free Text/Narative: Information is obtained from the patient, discussing with the family, ER provider, reviewing the [facility] records. 88-year-old with a history of COPD, home oxygen dependent. Using about 2.5 L nasal cannula oxygen continuously. He is minimally mobile. Only in the house, few steps. The patient has chronic lower extremity edema that they felt maybe of first lately. The patient felt somewhat warm on the day of admission. He was complaining of increased shortness of breath associated with the anxiety. Has chronic cough that did not change lately. No sick contact. No chest pain associated with this. Shortness of breath is moderate, worse with activity. Has been using Nebulizers which did not significantly change the symptoms - Related Data Allergies/Adverse Reactions: Allergies Allergy/AdvReac Type Severity Reaction Status Date / Time No Known Allergies Allergy Verified 12/25/18 19:52 Home Medications: Home Meds Furosemide [Lasix] 20 mg PO DAILY #30 tablet 11/04/13 [Rx] Glimepiride [Amaryl] 2 mg PO BRK #30 tablet 11/04/13 [Rx] Insulin Glarg,Human.Rec.Analog [Lantus Solostar] 15 unit SUBCUT DAILY #5 pen [Rx] Potassium Chloride [Klor-Con 10] 10 meq PO DAILY #30 tablet.er 11/04/13 [Rx] Albuterol [Proventil Neb Soln] 2.5 mg NEB Q4HR PRN 11/27/15 [History] Aspirin [Adult Low Dose Aspirin EC] 81 mg PO BEDTIME 11/27/15 [History] Lisinopril [Prinivil] 2.5 mg PO DAILY 11/27/15 [History] Metoprolol Tartrate 12.5 mg PO BID 11/27/15 [History] Magnesium Oxide [Magnesium] 250 mg PO BEDTIME 05/15/17 [History] Aspirin [Adult Low Dose Aspirin EC] 81 mg PO DAILY 12/25/18 [History] Benzonatate 100 mg PO TID 12/25/18 [History] Budesonide [Pulmicort] 0.5 mg NEB BID 12/25/18 [History] Ipratropium/Albuterol Sulfate [Iprat-Albut 0.5-3(2.5) mg/3 ml] 1 inh INH QID [History] guaiFENesin [Guaifenesin] 200 mg PO DAILY 12/25/18 [History] Past Medical History HEENT History: Reports: None Cardiovascular History: Reports: None, Heart Failure Respiratory History: Reports: COPD Other Respiratory History: emphysema Gastrointestinal History: Reports: None Genitourinary History: Reports: Prostate Disorder Musculoskeletal History: Reports: None Neurological History: Reports: Other (See Below) Other Neuro History: unspecified palsy Psychiatric History: Reports: Anxiety Endocrine/Metabolic History: Reports: Diabetes, Type II Hematologic History: Reports: None Immunologic History: Reports: None Oncologic (Cancer) History: Reports: Basal Cell Carcinoma, Prostate Dermatologic History: Reports: Other (See Below) Other Dermatologic History: basal cell carcinoma - Infectious Disease History Infectious Disease History: Reports: None - Past Surgical History GI Surgical History: Reports: Hernia Repair/Other Social & Family History - Family History Family Medical History: Unobtainable Cardiac: Reports: Hypertension, [place] Oncologic: Reports: Other (See Below) Other Oncologic Family History: stomach - Tobacco Use Smoking Status *Q: Current Every Day Smoker Years of Tobacco use: 40 Packs/Tins Daily: 0.5 - Caffeine Use Caffeine Use: Reports: Coffee - Recreational Drug Use Recreational Drug Use: No H&P Review of Systems - Review of Systems: Review Of Systems: See Below General: Reports: Fever (Subjectively warm), Malaise, Weakness Pulmonary: Reports: Shortness of Breath, Cough (Chronic). Denies: Sputum Cardiovascular: Reports: Edema (Somewhat worse than usual bilateral feet). Denies: Chest Pain Gastrointestinal: Denies: Abdominal Pain Genitourinary: Denies: Dysuria Psychiatric: Denies: Confusion Exam - Exam Exam: See Below - Vital Signs Vital Signs: Last Vital Signs Temp 37.1 C 12/25/18 19:24 Pulse 109 H 12/25/18 19:24 Resp 22 H 12/25/18 19:24 BP 170/87 H 12/25/18 19:24 Pulse Ox 93 L 12/25/18 19:24 Weight: 112.128 kg - Exam Quality Assessment: Supplemental Oxygen General: Alert, Oriented Neck: Supple Lungs: Normal Respiratory Effort, Decreased Breath Sounds. No: Wheezing Cardiovascular: Regular Rate, Regular Rhythm GI/Abdominal Exam: Normal Bowel Sounds, Soft, Non-Tender Extremities: Pedal Edema (Bilateral 1-2+) Skin: Warm, Dry Neuro Extensive - Mental Status: Alert, Oriented x3, Other (Anxious) - Patient Data Lab Results Last 24 hrs: Laboratory Results - last 24 hr 12/25/18 12/25/18 12/25/18 Range/Units 18:15 18:15 18:15 WBC 17.5 H (5.0-10.0) 10^3/uL RBC 4.63 (4.6-6.2) 10^6/uL Hgb 14.2 (14.0-18.0) g/dL Hct 42.5 (40.0-54.0) % MCV 91.8 (80-100) fL MCH 30.7 (27.0-34.0) pg MCHC 33.4 (33.0-35.0) g/dL Plt Count 227 (150-450) 10^3/uL Neut % (Auto) 86.1 H (42.2-75.2) % Lymph % (Auto) 7.5 L (20.5-50.1) % [place] % (Auto) 5.5 (2-8) % Eos % (Auto) 0.7 L (1.0-3.0) % Baso % (Auto) 0.2 (0.0-1.0) % Sodium (135-145) mmol/L Potassium (3.6-5.0) mmol/L Chloride (101-111) mmol/L Carbon Dioxide (21.0-31.0) mmol/L Anion Gap BUN (7-18) mg/dL Creatinine (0.6-1.3) mg/dL Est Cr Clr Drug Dosing mL/min Estimated GFR (MDRD) BUN/Creatinine Ratio Glucose (74-105) mg/dL Lactic Acid 1.4 (0.5-2.2) mmol/L Calcium (8.4-10.2) mg/dl Total Bilirubin (0.2-1.0) mg/dL AST (10-42) IU/L ALT (10-60) IU/L Alkaline Phosphatase (42-121) IU/L Troponin I (0.00-0.02) ng/ml B-Natriuretic Peptide 15 (0-100) pg/ml Total Protein (6.7-8.2) g/dl Albumin (3.2-5.5) g/dl Globulin Albumin/Globulin Ratio 12/25/18 Range/Units 18:15 WBC (5.0-10.0) 10^3/uL RBC (4.6-6.2) 10^6/uL Hgb (14.0-18.0) g/dL Hct (40.0-54.0) % MCV (80-100) fL MCH (27.0-34.0) pg MCHC (33.0-35.0) g/dL Plt Count (150-450) 10^3/uL Neut % (Auto) (42.2-75.2) % Lymph % (Auto) (20.5-50.1) % [place] % (Auto) (2-8) % Eos % (Auto) (1.0-3.0) % Baso % (Auto) (0.0-1.0) % Sodium 136 (135-145) mmol/L Potassium 4.5 (3.6-5.0) mmol/L Chloride 98 L (101-111) mmol/L Carbon Dioxide 28.0 (21.0-31.0) mmol/L Anion Gap 14.5 BUN 21 H (7-18) mg/dL Creatinine 1.1 (0.6-1.3) mg/dL Est Cr Clr Drug Dosing 52.91 mL/min Estimated GFR (MDRD) > 60 BUN/Creatinine Ratio 19.09 Glucose 144 H (74-105) mg/dL Lactic Acid (0.5-2.2) mmol/L Calcium 8.6 (8.4-10.2) mg/dl Total Bilirubin 0.6 (0.2-1.0) mg/dL AST 24 (10-42) IU/L ALT 20 (10-60) IU/L Alkaline Phosphatase 66 (42-121) IU/L Troponin I < 0.02 (0.00-0.02) ng/ml B-Natriuretic Peptide (0-100) pg/ml Total Protein 7.5 (6.7-8.2) g/dl Albumin 4.0 (3.2-5.5) g/dl Globulin 3.5 Albumin/Globulin Ratio 1.14 Result Diagrams: 12/25/18 18:15 12/25/18 18:15 Richy Results Last 24 hrs: Microbiology 12/25/18 18:20 Anaerobic Blood Culture - Final Blood - Venous - Lab Draw - Problem List (1) COPD with exacerbation SNOMED Code(s): 386053054 ICD Code: J44.1 - CHRONIC OBSTRUCTIVE PULMONARY DISEASE W (ACUTE) EXACERBATION Status: Acute Current Visit: No (2) Diabetes mellitus type 2 SNOMED Code(s): 09373251 ICD Code: E11.9 - TYPE 2 DIABETES MELLITUS WITHOUT COMPLICATIONS Status: Chronic Current Visit: No Onset Date: 10/23/13 Problem List Initiated/Reviewed/Updated: Yes Orders Last 24hrs: Active Orders 24 hr Category Date Time Status Glucose [Blood Glucose Check, Bedside] [RC] QIDACANDBED Care 12/25/18 19:48 Active RT Aerosol Therapy [RC] ASDIRECTED Care 12/25/18 18:06 Active RT Aerosol Therapy [RC] ASDIRECTED Care 12/25/18 19:47 Active Chest 1V Frontal [CR] Urgent Exams 12/25/18 18:06 Taken B-TYPE NATRIURETIC PEPTIDE,BNP [CHEM] AM Lab 12/27/18 05:11 Ordered BASIC METABOLIC PANEL,BMP [CHEM] AM Lab 12/26/18 05:15 Ordered CBC WITH AUTO DIFF [HEME] AM Lab 12/26/18 05:15 Ordered CULTURE BLOOD [BC] Stat Lab 12/25/18 18:15 Received CULTURE BLOOD [BC] Stat Lab 12/25/18 18:20 Results CULTURE SPUTUM + SMEAR [RM] Routine Lab 12/25/18 19:49 Ordered Albuterol/Ipratropium [DuoNeb 3.0-0.5 MG/3 ML] Med 12/25/18 19:46 Ordered 3 ml NEB Q2H PRN Albuterol/Ipratropium [DuoNeb 3.0-0.5 MG/3 ML] Med 12/26/18 01:00 Ordered 3 ml NEB Q6HRRT Aspirin [Halfprin] Med 12/25/18 21:00 Ordered 81 mg PO BEDTIME Azithromycin [Zithromax] 500 mg Med 12/25/18 19:05 Active Sodium Chloride 0.9% [Normal Saline] 250 ml IV ONETIME Azithromycin [Zithromax] 500 mg Med 12/26/18 20:00 Ordered Sodium Chloride 0.9% [Normal Saline] 250 ml IV Q24H Budesonide [Pulmicort] Med 12/25/18 21:00 Ordered 0.5 mg NEB BID Furosemide [Lasix] Med 12/25/18 21:00 Ordered 20 mg PO BID Glimepiride [Amaryl] Med 12/26/18 08:00 Ordered 2 mg PO BRK Insulin Glarg,Human.Rec.Analog [Lantus Solostar] Med 12/26/18 09:00 Ordered 15 unit SUBCUT DAILY Insulin Lispro [HumaLOG] Med 12/25/18 21:00 Ordered See Protocol SUBCUT ACBED Magnesium Oxide Med 12/25/18 19:45 Ordered 250 mg PO .EVENING Metoprolol Tartrate [Lopressor] Med 12/25/18 21:00 Ordered 12.5 mg PO BID Potassium Chloride [Klor-Con 10] Med 12/26/18 09:00 Ordered 10 meq PO DAILY cefTRIAXone [Rocephin] 1 gm Med 12/25/18 19:05 Active Sodium Chloride 0.9% [Normal Saline] 50 ml IV ONETIME cefTRIAXone [Rocephin] 1 gm Med 12/26/18 20:00 Ordered Sodium Chloride 0.9% [Normal Saline] 50 ml IV Q24H guaiFENesin [Mucinex] Med 12/25/18 21:00 Ordered 600 mg PO BID Blood Culture x2 Reflex Set [OM.PC] Stat Oth 12/25/18 18:05 Ordered Medication Orders Albuterol/Ipratropium (Duoneb 3.0-0.5 Mg/3 Ml) 3 ml NEB Q6HRRT [facility] Albuterol/Ipratropium (Duoneb 3.0-0.5 Mg/3 Ml) 3 ml NEB Q2H PRN PRN Reason: sob Aspirin (Halfprin) 81 mg PO BEDTIME [facility] Budesonide (Pulmicort) 0.5 mg NEB BID [facility] Furosemide (Lasix) 20 mg PO BID [facility] Glimepiride (Amaryl) 2 mg PO BRK [facility] Guaifenesin (Mucinex) 600 mg PO BID [facility] Azithromycin 500 mg/ Sodium (Chloride) 250 mls @ 250 mls/hr IV ONETIME ONE Stop: 12/25/18 20:04 Ceftriaxone Sodium 1 gm/ (Sodium Chloride) 50 mls @ 50 mls/hr IV ONETIME ONE Stop: 12/25/18 20:04 Last Admin: 12/25/18 19:24 Dose: 50 mls/hr Azithromycin 500 mg/ Sodium (Chloride) 250 mls @ 250 mls/hr IV Q24H [facility] Ceftriaxone Sodium 1 gm/ (Sodium Chloride) 50 mls @ 50 mls/hr IV Q24H [facility] Insulin Human Lispro (Humalog) 0 unit SUBCUT ACBED LAZARUS; Protocol Magnesium Oxide (Magnesium Oxide) 250 mg PO .EVENING [facility]AR[facility] Metoprolol Tartrate (Lopressor) 12.5 mg PO BID [facility] Non-Formulary Medication (Insulin Glarg,Human.Rec.Analog [Lantus Solostar]) 15 unit SUBCUT DAILY [facility] Potassium Chloride (Klor-Con 10) 10 meq PO DAILY [facility] Assessment/Plan Comment:: 88-year-old with a history of COPD, home oxygen dependent, chronic congestive heart failure presented with increased shortness of breath. The patient is noted to have leukocytosis. Increased lower extremity edema. Shortness of breath This is likely secondary to acute exacerbation of COPD He is intolerant to steroids, steroids causing him to be anxious Will use DuoNeb frequent nebulizers scheduled and when necessary Use Pulmicort Chronic hypoxemic respiratory failure Continuous oxygen supplement as needed There is no apparent pneumonia on chest x-ray but there is concern for acute bronchitis with subjective fever and leukocytosis Obtain blood culture Obtain sputum culture Start empirical treatment with azithromycin and Rocephin Increased lower extremity edema No apparent acute CHF exacerbation seen on CXR I will increase the patient's Lasix dose Follow electrolytes DVT prophylaxis will be with subcutaneous heparin
[2018-12-25] MEDS ORDERED: Docusate Sodium 100 MG Cap PO PRN (19:57)
[2018-12-25] MEDS ORDERED: Zolpidem 5 MG Tab PO PRN (19:57)
[2018-12-25] MEDS ORDERED: Acetaminophen 325 MG Tab PO PRN (19:57)
[2018-12-25] MEDS ORDERED: Azithromycin 500 MG in Sodium Chloride 0.9% 250 ML IV SCH (20:00)
[2018-12-25] MEDS: Albuterol/Ipratropium 3.0-0.5 MG/3 ML Neb Soln NEB PRN ×2 (20:26→23:53)
[2018-12-25] MEDS ORDERED: guaiFENesin 600 MG Tab.ER PO SCH (21:00)
[2018-12-25] MEDS: Aspirin 81 MG Tab.EC PO SCH (21:26)
[2018-12-25] MEDS: Furosemide 20 MG Tab PO SCH (21:26)
[2018-12-25] MEDS: diphenhydrAMINE 25 MG Tab PO PRN (21:26)
[2018-12-25] MEDS: Budesonide 0.5 MG/2 ML Neb Susp NEB SCH (21:30)
[2018-12-25] MEDS: Metoprolol Tartrate 25 MG Tab PO SCH (21:36)
[2018-12-25] MEDS: Insulin Lispro 100 Units/ML 3 ML Vial SUBCUT SCH (21:38)
[2018-12-25] MEDS: Heparin Sodium 5,000 Units/ML Vial SUBCUT SCH (21:38)
[2018-12-26] MEDS: Albuterol/Ipratropium 3.0-0.5 MG/3 ML Neb Soln NEB SCH ×4 (03:01→19:50)
[2018-12-26] MEDS: Heparin Sodium 5,000 Units/ML Vial SUBCUT SCH ×3 (05:50→21:39)
[2018-12-26 07:34] LABS: ANION GAP 17.2
[2018-12-26] MEDS: Insulin Glarg,Human.Rec.Analog 100 UNIT/ML ML SUBCUT SCH (08:29)
[2018-12-26] MEDS: Insulin Lispro 100 Units/ML 3 ML Vial SUBCUT SCH ×4 (08:29→21:26)
[2018-12-26] MEDS: Furosemide 20 MG Tab PO SCH ×2 (08:30→15:17)
[2018-12-26] MEDS: Metoprolol Tartrate 25 MG Tab PO SCH ×2 (08:30→21:30)
[2018-12-26] MEDS: Glimepiride 2 MG Tab PO SCH (08:31)
[2018-12-26] MEDS: Potassium Chloride 10 MEQ Tab.ER PO SCH (08:31)
[2018-12-26] MEDS: Budesonide 0.5 MG/2 ML Neb Susp NEB SCH ×2 (11:32→21:33)
[2018-12-26] MEDS ORDERED: cefTRIAXone 1 GM in Sodium Chloride 0.9% 50 ML IV SCH (19:00)
[2018-12-26] MEDS ORDERED: Azithromycin 500 MG in Sodium Chloride 0.9% 250 ML IV SCH (20:00)
[2018-12-26] MEDS: Aspirin 81 MG Tab.EC PO SCH (21:27)
[2018-12-26] MEDS: diphenhydrAMINE 25 MG Tab PO PRN (22:02)
[2018-12-27] MEDS: Albuterol/Ipratropium 3.0-0.5 MG/3 ML Neb Soln NEB SCH ×2 (01:16→07:24)
[2018-12-27] MEDS: Heparin Sodium 5,000 Units/ML Vial SUBCUT SCH (06:41)
[2018-12-27] MEDS: Insulin Lispro 100 Units/ML 3 ML Vial SUBCUT SCH ×2 (08:25→11:42)
[2018-12-27] MEDS: Potassium Chloride 10 MEQ Tab.ER PO SCH (08:27)
[2018-12-27] MEDS: Glimepiride 2 MG Tab PO SCH (08:27)
[2018-12-27] MEDS: Metoprolol Tartrate 25 MG Tab PO SCH (08:27)
[2018-12-27] MEDS: Furosemide 20 MG Tab PO SCH (08:27)
[2018-12-27] MEDS: Insulin Glarg,Human.Rec.Analog 100 UNIT/ML ML SUBCUT SCH (08:29)
[2018-12-27] MEDS: Budesonide 0.5 MG/2 ML Neb Susp NEB SCH (09:37)
[2018-12-27 12:34] VITALS: BP 118/68
--- NOTE | 2018-12-27 14:57 | PN ---
DATE: 12/26/2018 SUBJECTIVE: Mr. Solorio is an 88-year-old gentleman, well known to me from previous care. He has a long history of COPD with around 100-pack year history of smoking. He also has history of type 2 diabetes, dyslipidemia, and prostate cancer almost 20 years ago, which was treated with radical prostatectomy. As mentioned above, Mr. Solorio has a long history of COPD and is on chronic home oxygen therapy. We did discuss this in the room today with his daughters at times. They do turn the oxygen up and we suggested that they attempt to keep him on the lowest possible oxygen flow with sats 90% or better. He presented to the emergency department with increased shortness of breath and is currently being treated for an acute exacerbation of COPD with bronchitis. Chest x-ray at time of admission did not show any acute infiltrate and no pulmonary venous congestion. Daughters and he both pointed out that he is having increased lower extremity edema and apparently they "adjust his furosemide dose at home depending on how his legs look." Review of his testing from the time of his admission includes a single-view chest x-ray, which showed mild cardiomegaly and no acute infiltrate or pulmonary venous congestion. A 12-lead EKG in the ER had showed sinus tachycardia with ventricular rate of 109, otherwise no acute changes. Lab work showed an elevated white count of 19,000 with left shift, hemoglobin and hematocrit were 13.6 and 41. Chemistry showed BUN and creatinine of 22 and 1.2 with a GFR of 57. Blood sugars have been well controlled since admission. We will avoid repeat white count and differential for the morning. Review of his clinical data since the time of admission showed good oral intake. His appetite is improved. He is tolerating his diet. Vital signs have been stable and he has remained afebrile. PHYSICAL EXAMINATION: General: He is seated comfortably in his bed. 2 of his daughters are present, apparently he is having hard time sitting up due to his obesity and 1 of his daughters is literally sitting behind him supporting his back, but he was in good spirits and participated throughout the visit. Vital Signs: Blood pressure 127/65, pulse 85, respiratory rate 22, oxygen saturation 98% on 2.5 L. He was afebrile. HEENT: Unremarkable. ENT was clear. Chest: Showed diminished bilateral breath sounds and occasional coarse wheezing. Heart: Showed regular rate and rhythm. Abdomen: Morbidly obese and benign. Extremities: Showed chronic lower extremity edema. Neurologic: He is intact. IMPRESSION: An 88-year-old gentleman with long history of chronic obstructive pulmonary disease, is now admitted for an exacerbation. We will continue his present therapy with nebulized bronchodilators, nebulized Pulmicort, and his usual medications. We have ordered an incentive spirometer and flutter valve and he continues on chronic oxygen. Overall, he seems improved since time of admission and is eager to be discharged home. [facility] /[id number]
--- NOTE | 2018-12-27 15:46 | DISCH ---
ADMITTING DIAGNOSES: 1. Increasing shortness of breath. 2. Acute exacerbation of chronic obstructive pulmonary disease. 3. Acute on chronic hypoxic respiratory failure. DISCHARGE DIAGNOSES: 1. Acute chronic obstructive pulmonary disease exacerbation, improved. 2. Possible acute bronchitis, improved with IV antibiotics, switched him to oral Zithromax. 3. Acute on chronic hypoxic respiratory failure, improved and stable at his baseline. 4. Chronic congestive heart failure. HISTORY OF PRESENT ILLNESS: Mr. Ben Solorio is an 88-year-old male with a medical history significant for hypertension, hyperlipidemia, chronic congestive heart failure, chronic hypoxic respiratory failure, admitted to the hospital with increasing shortness of breath. His chest x-ray was within normal limits without any new infiltrates or pulmonary venous congestion. He was treated with Lasix, nebulizer treatment, and IV antibiotics and he responded well to the treatment. The patient's family member does not want him to be on oral steroids at the time of discharge. We switched him to oral antibiotics of Zithromax, and he will continue with the nebulizer treatment at home. He will continue with supplemental oxygen as needed to maintain a saturation of 95%. He and his family member wanted to be discharged home. He is discharged home in stable condition. He is advised to increase the Lasix to twice a day for the next 5 days and then resume it once a day dosing as he was noted to have edema to the lower extremities. He is advised to follow with his primary care physician in next 1 week of time. DISCHARGE MEDICATIONS: Include: 1. Proventil nebulizer every 4 hours as needed for shortness of breath. 2. Aspirin 81 mg at bedtime. 3. Zithromax 250 mg daily. 4. Benzonatate 100 mg 3 times a day. 5. Pulmicort nebulizer twice a day. 6. Lasix 20 mg twice a day for the next 5 days and then switch him to once a day dosing. 7. Amaryl 2 mg at breakfast. 8. Lantus 15 units daily. 9. Ipratropium/albuterol inhalation 4 times daily. 10.Magnesium oxide 250 mg daily. 11.Metoprolol 12.5 mg twice a day. 12.Potassium chloride 10 mEq daily. 13.Benadryl 25 mg at bedtime. PHYSICAL EXAMINATION ON THE DAY OF DISCHARGE: Vital Signs: Temperature of 97.4, pulse of 98, blood pressure of 119/71, respiratory rate of 20, saturating at 97% on 2.5 L of oxygen. General Appearance: The patient is well oriented to time, place, and person. Follows commands spontaneously. Cardiovascular System: Clear to auscultation bilaterally except for mild crepitations at the bases. No wheeze. Abdomen: Soft. Bowel sounds positive. Nontender. No rigidity. Extremities: Mild edema of bilateral lower extremities. Neurology: No gross focal neurological deficit. CONDITION ON ADMISSION: Poor. CONDITION ON DISCHARGE: Stable. DISPOSITION: Discharged to home. ACTIVITY: As tolerated. DIET: Cardiac healthy diet. FOLLOWUP: Follow with primary care physician in the next 1 week of time. Spent over 35 minutes of time in evaluating and treating this patient and explaining discharge instructions to the patient and family members at bedside. [facility] /[id number]
== END 2018-12-27 12:55 | disposition home or self-care (01) | DRG 190 ==
LOC: DL.ED 18:00 → DL.MS 19:20 → UNDOADMIN 19:20 → DL.MS 19:57 → EEVIPCON 19:57
PROVIDERS: ADMIT Internal Medicine; ATTEND Internal Medicine
DX: J44.1 Chronic obstructive pulmonary disease with (acute) exacerbation (principal); J96.21 Acute and chronic respiratory failure with hypoxia; J44.0 Chronic obstructive pulmonary disease with (acute) lower respiratory infection; J20.9 Acute bronchitis, unspecified; E78.5 Hyperlipidemia, unspecified; I50.9 Heart failure, unspecified; F41.9 Anxiety disorder, unspecified; E11.9 Type 2 diabetes mellitus without complications; F17.210 Nicotine dependence, cigarettes, uncomplicated; Z99.81 Dependence on supplemental oxygen; Z79.4 Long term (current) use of insulin; Z79.82 Long term (current) use of aspirin; Z79.899 Other long term (current) drug therapy; Z85.46 Personal history of malignant neoplasm of prostate
CPT/HCPCS: 36415; 71045; 80048; 80053; 82962; 83605; 83880; 84484; 85004; 85025; 87040; 93005; 94640; 99284-25; A9270-GY; J0456; J0696; J1644; J1815; J1815-GY; J7050; J7620-GY

== ENCOUNTER 2019-07-30 21:06 | Inpatient (IN) | payer OTHER, MEDICARE, MEDICAID ==
[2019-07-30] MEDS ORDERED: Furosemide 40 MG/4 ML VIAL IVPUSH ONE (21:16)
[2019-07-30] MEDS ORDERED: Levofloxacin/Dextrose 5%-Water 750 MG in Premix Bag 1 BAG IV ONE (21:40)
[2019-07-30 21:53] LABS: ANION GAP 15.4; CHLORIDE,CL 99 mmol/L (101-111); SODIUM,NA 136 mmol/L (135-145)
--- NOTE | 2019-07-30 22:25 | EDM.PDOC ---
ED HPI GENERAL MEDICAL PROBLEM - General Chief Complaint: Respiratory Problem Stated Complaint: LRA - AMBULANCE Time Seen by Provider: 07/30/19 21:10 Source of Information: Reports: Patient, EMS, Family, RN History Limitations: Reports: No Limitations - History of Present Illness INITIAL COMMENTS - FREE TEXT/NARRATIVE: ED via [facility] with c/o increased weakness past couple of days. Unable to get out of chair tonight. Daughter reports blood sugars running higher than usual, patient sweating more. Hx severe COPD. Cough wetter tonight than usual. No change in oxygen, home O2 at 2.5L. No known fever, Cough nonproductive. Appetite decreased. Difficulty with urination. Daughter reports that weekend, patient went 24 hours without voiding. no vomiting or diarrhea. - Related Data Allergies Allergy/AdvReac Type Severity Reaction Status Date / Time No Known Allergies Allergy Verified 07/30/19 22:59 Home Meds: Home Meds Glimepiride [Amaryl] 2 mg PO BRK #30 tablet 11/04/13 [Rx] Insulin Glarg,Human.Rec.Analog [Lantus Solostar] 15 unit SUBCUT DAILY #5 pen [Rx] Potassium Chloride [Klor-Con 10] 10 meq PO DAILY #30 tablet.er 11/04/13 [Rx] Albuterol [Proventil Neb Soln] 2.5 mg NEB Q4HR PRN 11/27/15 [History] Aspirin [Adult Low Dose Aspirin EC] 81 mg PO BEDTIME 11/27/15 [History] Metoprolol Tartrate 12.5 mg PO DAILY 11/27/15 [History] Magnesium Oxide [Magnesium] 250 mg PO BEDTIME 05/15/17 [History] Benzonatate 100 mg PO TID 12/25/18 [History] Budesonide [Pulmicort] 0.5 mg NEB BID 12/25/18 [History] Ipratropium/Albuterol Sulfate [Iprat-Albut 0.5-3(2.5) mg/3 ml] 1 inh INH QID [History] diphenhydrAMINE [Benadryl] 25 mg PO BEDTIME 12/25/18 [History] Furosemide [Lasix] 20 mg PO DAILY #30 tablet 12/27/18 [Rx] Past Medical History HEENT History: Reports: None Cardiovascular History: Reports: None, Heart Failure Respiratory History: Reports: COPD Other Respiratory History: emphysema Gastrointestinal History: Reports: None Genitourinary History: Reports: Prostate Disorder Musculoskeletal History: Reports: None Neurological History: Reports: Other (See Below) Other Neuro History: unspecified palsy Psychiatric History: Reports: Anxiety Endocrine/Metabolic History: Reports: Diabetes, Type II Hematologic History: Reports: None Immunologic History: Reports: None Oncologic (Cancer) History: Reports: Basal Cell Carcinoma, Prostate Dermatologic History: Reports: Other (See Below) Other Dermatologic History: basal cell carcinoma - Infectious Disease History Infectious Disease History: Reports: None - Past Surgical History Head Surgeries/Procedures: Reports: None GI Surgical History: Reports: Hernia Repair/Other Social & Family History - Family History Family Medical History: Unobtainable Cardiac: Reports: Hypertension, MD Oncologic: Reports: Other (See Below) Other Oncologic Family History: stomach - Tobacco Use Smoking Status *Q: Current Every Day Smoker Years of Tobacco use: 66 Packs/Tins Daily: 0.5 - Caffeine Use Caffeine Use: Reports: Coffee - Recreational Drug Use Recreational Drug Use: No ED ROS GENERAL - Review of Systems Review Of Systems: Comprehensive ROS is negative, except as noted in HPI. ED EXAM, GENERAL - Physical Exam Exam: See Below Exam Limited By: No Limitations General Appearance: Alert, Mild Distress Eye Exam: Bilateral Eye: EOMI Ears: Normal External Exam, Hearing Loss Nose: Normal Inspection Throat/Mouth: Normal Inspection Head: Atraumatic, Normocephalic Neck: Normal Inspection Respiratory/Chest: Rhonchi, Accessory Muscle Use, Prolonged Expiration Cardiovascular: Regular Rate, Rhythm, Tachycardia. No: No Edema (3+) GI/Abdominal: Normal Bowel Sounds Rectal (Males) Exam: Other (large soft rick BM) Neurological: Alert, Oriented, Normal Cognition Skin Exam: Warm, Dry, Pallor, Wound/Incision (right scapular, 2x2cm raised hemangioma type lesion, moist, scant bloody drainage on dressiong.) Course - Vital Signs Last Recorded V/S: Last Vital Signs Temp 98.9 F 07/30/19 23:27 Pulse 114 H 07/30/19 23:27 Resp 20 07/30/19 23:27 BP 127/81 07/30/19 23:27 Pulse Ox 90 L 07/31/19 01:15 - Orders/Labs/Meds Orders: Active Orders 24 hr Category Date Time Status Antonio Catheter Insertion [Insert Urinary Catheter] [OM. Care 07/30/19 21:24 Ordered PC] Stat Urinary Catheter Assessment [RC] 08,20 Care 07/30/19 21:25 Active Chest 1V Frontal [CR] Urgent Exams 07/30/19 21:14 Taken CULTURE BLOOD [BC] Stat Lab 07/30/19 21:24 Received CULTURE BLOOD [BC] Stat Lab 07/30/19 22:03 Received CULTURE SPUTUM + SMEAR [RM] Stat Lab 07/30/19 21:25 Ordered Blood Culture x2 Reflex Set [OM.PC] Stat Oth 07/30/19 21:15 Ordered Code Status [Resuscitation Status] Stat Resus Stat 07/30/19 21:29 Ordered Medication Orders Acetaminophen (Tylenol) 650 mg PO Q4H PRN PRN Reason: Pain (Mild 1-3)/fever Hydrocodone Bitart/Acetaminophen ([place] 325-10 Mg) 0.5 tab PO Q4H PRN PRN Reason: Pain (moderate 4-6) Albuterol (Proventil Neb Soln) 2.5 mg NEB Q4HR PRN PRN Reason: Shortness of Breath Albuterol/Ipratropium (Duoneb 3.0-0.5 Mg/3 Ml) 3 ml NEB Q6HRRT [facility] Last Admin: 07/31/19 01:12 Dose: 3 ml Aspirin (Halfprin) 81 mg PO BEDTIME [facility] Benzonatate (Tessalon Perles) 100 mg PO TID [facility] Budesonide (Pulmicort) 0.5 mg NEB BID [facility] Diphenhydramine HCl (Benadryl) 25 mg PO BEDTIME [facility] Docusate Sodium (Colace) 100 mg PO BID PRN PRN Reason: Constipation Enoxaparin Sodium (Lovenox) 40 mg SUBCUT DAILY [facility] Furosemide (Lasix) 20 mg PO DAILY [facility] Furosemide (Lasix) 20 mg PO BIDDIURETIC [facility] Stop: 08/04/19 14:01 Glimepiride (Amaryl) 2 mg PO BRK [facility] Ceftriaxone Sodium 1 gm/ (Sodium Chloride) 50 mls @ 50 mls/hr IV Q24H [facility] Azithromycin 500 mg/ Sodium (Chloride) 250 mls @ 250 mls/hr IV Q24H [facility] Insulin Glargine (Lantus) 15 unit SUBCUT DAILY [facility] Last Admin: 07/31/19 00:26 Dose: 15 units Lorazepam (Ativan) 0.5 mg PO BEDTIME PRN PRN Reason: Insomnia Last Admin: 07/31/19 00:29 Dose: 0.5 mg Magnesium Oxide (Magnesium Oxide) 250 mg PO BEDTIME [facility] Metoprolol Tartrate (Lopressor) 12.5 mg PO DAILY [facility] Nicotine (Habitrol) 7 mg TRDERM DAILY [facility] Potassium Chloride (Klor-Con 10) 10 meq PO DAILY [facility] Prednisone (Prednisone) 40 mg PO WITHBREAKFAST [facility] Sodium Chloride (Saline Flush) 10 ml FLUSH ASDIRECTED PRN PRN Reason: Keep Vein Open Labs: Laboratory Tests 07/30/19 07/30/19 07/30/19 Range/Units 21:24 21:24 21:24 WBC 15.1 H (5.0-10.0) 10^3/uL RBC 3.91 L (4.6-6.2) 10^6/uL Hgb 11.7 L D (14.0-18.0) g/dL Hct 35.1 L (40.0-54.0) % MCV 89.8 (80-100) fL MCH 29.9 (27.0-34.0) pg MCHC 33.3 (33.0-35.0) g/dL Plt Count 263 (150-450) 10^3/uL Neut % (Auto) 89.0 H (42.2-75.2) % Lymph % (Auto) 4.0 L (20.5-50.1) % [place] % (Auto) 6.8 (2-8) % Eos % (Auto) 0.1 L (1.0-3.0) % Baso % (Auto) 0.1 (0.0-1.0) % Sodium 136 (135-145) mmol/L Potassium 4.4 (3.6-5.0) mmol/L Chloride 99 L (101-111) mmol/L Carbon Dioxide 26.0 (21.0-31.0) mmol/L Anion Gap 15.4 BUN 33 H (7-18) mg/dL Creatinine 1.3 (0.6-1.3) mg/dL Est Cr Clr Drug Dosing TNP Estimated GFR (MDRD) 52 BUN/Creatinine Ratio 25.38 Glucose 364 H (74-105) mg/dL Lactic Acid 2.4 H (0.5-2.2) mmol/L Calcium 8.6 (8.4-10.2) mg/dl Total Bilirubin 0.3 (0.2-1.0) mg/dL AST 132 H (10-42) IU/L ALT 144 H (10-60) IU/L Alkaline Phosphatase 93 (42-121) IU/L B-Natriuretic Peptide 69 (0-100) pg/ml Total Protein 7.0 (6.7-8.2) g/dl Albumin 3.2 (3.2-5.5) g/dl Globulin 3.8 Albumin/Globulin Ratio 0.84 Meds: Medications Generic Name Dose Route Start Last Admin Trade Name Freq PRN Reason Stop Dose Admin Acetaminophen 650 mg 07/30/19 23:10 Tylenol PO Q4H PRN Pain (Mild 1-3)/fever Hydrocodone Bitart/Acetaminophen 0.5 tab 07/30/19 23:10 [place] 325-10 Mg PO Q4H PRN Pain (moderate 4-6) Albuterol 2.5 mg 07/30/19 23:15 Proventil Neb Soln NEB Q4HR PRN Shortness of Breath Albuterol/Ipratropium 3 ml 07/31/19 01:00 07/31/19 01:12 Duoneb 3.0-0.5 Mg/3 Ml NEB 3 ml Q6HRRT [facility] Administration Aspirin 81 mg 07/31/19 21:00 Halfprin PO BEDTIME [facility] Benzonatate 100 mg 07/31/19 09:00 Tessalon Perles PO TID [facility] Budesonide 0.5 mg 07/31/19 09:00 Pulmicort NEB BID [facility] Diphenhydramine HCl 25 mg 07/31/19 21:00 Benadryl PO BEDTIME [facility] Docusate Sodium 100 mg 07/30/19 23:10 Colace PO BID PRN Constipation Enoxaparin Sodium 40 mg 07/31/19 09:00 Lovenox SUBCUT DAILY [facility] Furosemide 20 mg 08/05/19 09:00 Lasix PO DAILY [facility] Furosemide 20 mg 07/31/19 08:00 Lasix PO 08/04/19 14:01 BIDDIURETIC [facility] Glimepiride 2 mg 07/31/19 08:00 Amaryl PO BRK [facility] Ceftriaxone Sodium 1 gm/ 50 mls @ 50 mls/hr 07/31/19 20:00 Sodium Chloride IV Q24H [facility] Azithromycin 500 mg/ Sodium 250 mls @ 250 mls/hr 07/31/19 21:00 Chloride IV Q24H [facility] Insulin Glargine 15 unit 07/30/19 23:45 07/31/19 00:26 Lantus SUBCUT 15 units DAILY [facility] Administration Lorazepam 0.5 mg 07/30/19 23:19 07/31/19 00:29 Ativan PO 0.5 mg BEDTIME PRN Administration Insomnia Magnesium Oxide 250 mg 07/31/19 21:00 Magnesium Oxide PO BEDTIME [facility] Metoprolol Tartrate 12.5 mg 07/31/19 09:00 Lopressor PO DAILY [facility] Nicotine 7 mg 07/31/19 09:00 Habitrol TRDERM DAILY [facility] Potassium Chloride 10 meq 07/31/19 09:00 Klor-Con 10 PO DAILY [facility] Prednisone 40 mg 07/31/19 08:00 Prednisone PO WITHBREAKFAST [facility] Sodium Chloride 10 ml 07/30/19 23:10 Saline Flush FLUSH ASDIRECTED PRN Keep Vein Open Discontinued Medications Generic Name Dose Route Start Last Admin Trade Name Freq PRN Reason Stop Dose Admin Azithromycin Confirm 07/31/19 00:10 07/31/19 00:30 Zithromax Administered 07/31/19 00:11 Not Given Dose 500 mg .ROUTE .STK-MED ONE Furosemide 40 mg 07/30/19 21:16 07/30/19 21:33 Lasix IVPUSH 07/30/19 21:17 40 mg NOW ONE Administration Levofloxacin/Dextrose 750 mg/ 150 mls @ 100 mls/hr 07/30/19 21:40 07/30/19 21 :49 Premix IV 07/30/19 23:09 100 mls/hr ONETIME ONE Administration Azithromycin 500 mg/ Sodium 250 mls @ 250 mls/hr 07/30/19 23:45 07/31/19 01: 11 Chloride IV 07/31/19 00:44 250 mls/hr ONETIME ONE Administration Ceftriaxone Sodium 1 gm/ 50 mls @ 50 mls/hr 07/30/19 23:45 07/31/19 00:25 Sodium Chloride IV 07/31/19 00:44 50 mls/hr ONETIME ONE Administration - Radiology Interpretation Free Text/Narrative:: RLL infiltrate - Re-Assessments/Exams Free Text/Narrative Re-Assessment/Exam: 07/30/19 22:26 Dr Rios accepting patient for inpatient admission Departure - Departure Time of Disposition: 22:45 Disposition: Admitted As Inpatient 68 Condition: Fair Clinical Impression: Diabetes mellitus type 2 Pneumonia Qualifiers: Pneumonia type: due to unspecified organism Laterality: bilateral Lung location : lower lobe of lung Qualified Code(s): J18.9 - Pneumonia, unspecified organism COPD (chronic obstructive pulmonary disease) Qualifiers: COPD type: unspecified COPD Qualified Code(s): J44.9 - Chronic obstructive pulmonary disease, unspecified - Discharge Information *PRESCRIPTION DRUG MONITORING PROGRAM REVIEWED*: No *COPY OF PRESCRIPTION DRUG MONITORING REPORT IN PATIENT SIVA: No Sepsis Event Note - Evaluation Sepsis Screening Result: No Definite Risk - Focused Exam Vital Signs: Vital Signs Temp Pulse Resp BP Pulse Ox 07/30/19 21:09 96 F 125 H 27 H 124/74 93 L Date Exam was Performed: 07/31/19 Time Exam was Performed: 03:46 - My Orders Last 24 Hours: My Active Orders 07/30/19 21:14 Chest 1V Frontal [CR] Urgent 07/30/19 21:15 Blood Culture x2 Reflex Set [OM.PC] Stat 07/30/19 21:24 Antonio Catheter Insertion [Insert Urinary Catheter] [OM.PC] Stat CULTURE BLOOD [BC] Stat 07/30/19 21:25 Urinary Catheter Assessment [RC] 08,20 CULTURE SPUTUM + SMEAR [RM] Stat 07/30/19 21:29 Code Status [Resuscitation Status] Stat 07/30/19 22:03 CULTURE BLOOD [BC] Stat - Assessment/Plan Last 24 Hours: My Active Orders 07/30/19 21:14 Chest 1V Frontal [CR] Urgent 07/30/19 21:15 Blood Culture x2 Reflex Set [OM.PC] Stat 07/30/19 21:24 Antonio Catheter Insertion [Insert Urinary Catheter] [OM.PC] Stat CULTURE BLOOD [BC] Stat 07/30/19 21:25 Urinary Catheter Assessment [RC] 08,20 CULTURE SPUTUM + SMEAR [RM] Stat 07/30/19 21:29 Code Status [Resuscitation Status] Stat 07/30/19 22:03 CULTURE BLOOD [BC] Stat
[2019-07-30] MEDS ORDERED: Acetaminophen 325 MG Tab PO PRN (23:10)
[2019-07-30] MEDS ORDERED: Acetaminophen/HYDROcodone 325-10 MG Tab PO PRN (23:10)
[2019-07-30] MEDS ORDERED: Docusate Sodium 100 MG Cap PO PRN (23:10)
[2019-07-30] MEDS ORDERED: Albuterol 0.083% 2.5 MG/3 ML Neb Soln NEB PRN (23:15)
[2019-07-30] MEDS ORDERED: LORazepam 0.5 MG Tab PO PRN (23:19)
[2019-07-30] MEDS ORDERED: cefTRIAXone 1 GM in Sodium Chloride 0.9% 50 ML IV ONE (23:45)
[2019-07-30] MEDS ORDERED: Azithromycin 500 MG in Sodium Chloride 0.9% 250 ML IV ONE (23:45)
[2019-07-31] MEDS ORDERED: Azithromycin 500 MG Vial ONE (00:10)
[2019-07-31] MEDS: Insulin Glarg,Human.Rec.Analog 100 UNIT/ML ML SUBCUT SCH ×2 (00:26→08:31)
--- NOTE | 2019-07-31 00:42 | HP ---
CHIEF COMPLAINT: Generalized weakness. HISTORY OF PRESENT ILLNESS: The patient is an 88-year-old gentleman, who was admitted through the emergency room because the patient for the last couple of days has increased generalized weakness and unable to get up out of the chair, and family has also noted that blood sugar readings have been running elevated than usual. The patient has been diaphoretic and has been having some nonproductive cough. The patient has been using his oxygen because of his severe COPD, and because of the above symptoms, he was brought into the emergency room by ambulance, and in the emergency room, he was noted to have right lower lobe infiltrate and leukocytosis compatible with pneumonia, and because of this, the patient was admitted for further evaluation and management. PAST MEDICAL HISTORY: Remarkable for heart failure, COPD, prostate cancer, history of CO, and type 2 diabetes mellitus. SOCIAL HISTORY: The patient is a smoker, still smoking a total of 4 cigarettes a day. No alcohol abuse. He is , lives with his . FAMILY HISTORY: Noncontributory. REVIEW OF SYSTEMS: As in HPI. The rest of the review of systems is negative, and the patient denies any chest pain, syncope, orthopnea, abdominal pain, nor any other complaints. HOME MEDICATIONS: Benadryl, potassium chloride, metoprolol, magnesium oxide, DuoNeb, Lantus, glimepiride, Lasix, Pulmicort, aspirin, and albuterol. ALLERGIES: No known drug allergies. PHYSICAL EXAMINATION: General: The patient is alert and oriented, in sqoa-[id number] respiratory distress. Vital Signs: Blood pressure is 124/74, pulse of 125, respirations 27, and saturation is 93% on 2.5 L per nasal cannula. SHEENT: Normocephalic. There are pink palpebral conjunctivae. Sclerae anicteric. Neck: No JVD. No lymphadenopathy. Neck is supple. Heart: Regular, slightly tachycardic. No gallops. No rubs. Lungs: Remarkable for coarse breath sounds bilaterally with mild expiratory wheeze bilaterally and faint crackles on the right lung field. Abdomen: Obese, soft, nontender. Bowel sounds positive. Extremities: Remarkable for trace to 1+ bilateral pedal edema. No calf tenderness. No signs of cellulitis. LABORATORY WORKUP: CBC: WBC is 15.1, hemoglobin is 11.7, hematocrit is 35.1, platelet is 263. Comp panel: Remarkable for chloride of 99, BUN of 33, glucose is 364, AST of 132, ALT of 144. Lactic acid is 2.4. BNP 69, which is within normal limits. Urinalysis is remarkable for glucose of 500 and 5 to 10 rbc. Chest x-ray is remarkable for the right lower lobe infiltrate. Blood culture x2 obtained. Sputum culture ordered. ADMITTING DIAGNOSES: 1. Right lower lobe pneumonia. 2. Chronic obstructive pulmonary disease exacerbation. 3. Systemic inflammatory response syndrome. 4. Hypoxemia. 5. Type 2 diabetes mellitus. 6. Coronary artery disease and history of myocardial infarction. TREATMENT PLAN: The patient is going to be admitted to Acute Care, General Medicine floor. He will be started on IV antibiotics and steroids, and he will be continued on his insulin, and he will be on a sliding scale insulin too, and the rest of the management as necessary. The patient is DNI and DNR. [facility] /[id number]
[2019-07-31] MEDS: Albuterol/Ipratropium 3.0-0.5 MG/3 ML Neb Soln NEB SCH ×4 (01:12→18:09)
[2019-07-31] MEDS: Metoprolol Tartrate 25 MG Tab PO SCH (08:26)
[2019-07-31] MEDS: Benzonatate 100 MG Cap PO SCH ×3 (08:26→20:17)
[2019-07-31] MEDS: Glimepiride 2 MG Tab PO SCH (08:27)
[2019-07-31] MEDS: Potassium Chloride 10 MEQ Tab.ER PO SCH (08:27)
[2019-07-31] MEDS: Furosemide 20 MG Tab PO SCH ×2 (08:29→13:39)
[2019-07-31] MEDS: predniSONE 20 MG Tab PO SCH (08:29)
[2019-07-31] MEDS: Enoxaparin 40 MG/0.4 ML Syringe SUBCUT SCH (08:29)
[2019-07-31] MEDS: Nicotine 7 MG/24 Hr Patch TRDERM SCH (08:29)
[2019-07-31] MEDS ORDERED: Enoxaparin 30 MG/0.3 ML Syringe SUBCUT SCH (09:00)
[2019-07-31] MEDS ORDERED: Budesonide 0.5 MG/2 ML Neb Susp NEB SCH (09:00)
--- NOTE | 2019-07-31 11:34 | PN ---
DATE: 07/31/2019 SUBJECTIVE: The patient is an 88-year-old gentleman with multiple medical problems including diabetes mellitus, COPD, coronary artery disease, who was admitted with right lobe pneumonia and COPD exacerbation. The patient this morning is feeling slightly better, but he still did not have a good night's sleep last night. He denies though any chest pain, worsening of shortness of breath, abdominal pain, nor any other complaints. LABORATORY DATA: Lab workup this morning: CBC: WBC is 15.2, hemoglobin is 12, hematocrit is 35.7, platelet is 239. Chem-6: Chloride of 98, BUN is 32, and glucose is 266. The rest of the panel unremarkable. OBJECTIVE: Vital Signs: Blood pressure is 140/80, pulse of 107, saturation is 90% on 4 L per nasal cannula. Heart: Regular. Lungs: Still remarkable for coarse breath sounds bilaterally with some faint crackles in the right lung field. Abdomen: Obese, soft, nontender. Extremities: Trace bilateral pedal edema. No calf tenderness. MEDICATIONS: Reviewed. PLAN: We will continue with his IV Zithromax and IV Rocephin, and we will continue with his bronchodilators. We will also have Physical Therapy see the patient for evaluation and management and strengthening. [facility] /[id number]
[2019-07-31] MEDS: Budesonide 0.5 MG/2 ML Neb Susp NEB SCH (18:09)
[2019-07-31] MEDS: Insulin Lispro 100 Units/ML 3 ML Vial SUBCUT SCH (18:09)
[2019-07-31] MEDS: diphenhydrAMINE 25 MG Tab PO SCH (20:17)
[2019-07-31] MEDS: LORazepam 1 MG Tab PO PRN (20:17)
[2019-07-31] MEDS: Aspirin 81 MG Tab.EC PO SCH (20:17)
[2019-07-31] MEDS: Sodium Chloride 0.9% 10 ML Syringe FLUSH PRN (20:19)
[2019-07-31] MEDS: cefTRIAXone 1 GM in Sodium Chloride 0.9% 50 ML IV SCH (20:23)
[2019-07-31] MEDS: Azithromycin 500 MG in Sodium Chloride 0.9% 250 ML IV SCH (21:27)
[2019-08-01] MEDS: Albuterol/Ipratropium 3.0-0.5 MG/3 ML Neb Soln NEB SCH ×4 (01:18→18:10)
[2019-08-01 06:51] LABS: ANION GAP 14.1; CHLORIDE,CL 101 mmol/L (101-111); SODIUM,NA 140 mmol/L (135-145)
[2019-08-01] MEDS: Budesonide 0.5 MG/2 ML Neb Susp NEB SCH ×2 (07:29→18:10)
[2019-08-01] MEDS: Furosemide 20 MG Tab PO SCH ×2 (08:53→15:17)
[2019-08-01] MEDS: Potassium Chloride 10 MEQ Tab.ER PO SCH (08:53)
[2019-08-01] MEDS: predniSONE 20 MG Tab PO SCH (08:53)
[2019-08-01] MEDS: Insulin Lispro 100 Units/ML 3 ML Vial SUBCUT SCH ×3 (08:54→17:52)
[2019-08-01] MEDS: Enoxaparin 40 MG/0.4 ML Syringe SUBCUT SCH (08:54)
[2019-08-01] MEDS: Glimepiride 2 MG Tab PO SCH (08:54)
[2019-08-01] MEDS: Nicotine 7 MG/24 Hr Patch TRDERM SCH (08:54)
[2019-08-01] MEDS: Benzonatate 100 MG Cap PO SCH ×3 (08:54→20:14)
[2019-08-01] MEDS: Metoprolol Tartrate 25 MG Tab PO SCH (08:58)
[2019-08-01] MEDS: Insulin Glarg,Human.Rec.Analog 100 UNIT/ML ML SUBCUT SCH (09:01)
--- NOTE | 2019-08-01 10:54 | PN ---
DATE: 08/01/2019 SUBJECTIVE: The patient this morning continues to do well. He had a good night's sleep, and the patient is starting to ambulate, and he was seen by Physical therapy. He is slowly regaining his strength. He denies any worsening of shortness of breath, chest pain, abdominal pain, or any other complaints. OBJECTIVE: Vital Signs: Blood pressure is 116/68, pulse of 94, respirations 22, temperature of 96.8. Heart: Regular rate and rhythm. Normal S1 and S2. No gallops. Lungs: Diminished breath sounds on both bases with coarse breath sounds and breath sounds equal. Abdomen: Obese, soft, and nontender. Extremities: Remarkable for trace bilateral pedal edema. MEDICATIONS: Reviewed. PLAN: We will continue with his present management, and if he continues to do well, anticipate discharge in a day or two. ADDENDUM: Please note that official report of the chest x-ray showed right lower lobe infiltrate. [facility] /[id number]
[2019-08-01] MEDS: cefTRIAXone 1 GM in Sodium Chloride 0.9% 50 ML IV SCH (20:10)
[2019-08-01] MEDS: Sodium Chloride 0.9% 10 ML Syringe FLUSH PRN ×2 (20:10→21:07)
[2019-08-01] MEDS: LORazepam 1 MG Tab PO PRN (20:14)
[2019-08-01] MEDS: Aspirin 81 MG Tab.EC PO SCH (20:14)
[2019-08-01] MEDS: diphenhydrAMINE 25 MG Tab PO SCH (20:14)
[2019-08-01] MEDS: Azithromycin 500 MG in Sodium Chloride 0.9% 250 ML IV SCH (21:07)
[2019-08-02] MEDS: Albuterol/Ipratropium 3.0-0.5 MG/3 ML Neb Soln NEB SCH ×2 (00:04→07:28)
[2019-08-02] MEDS: Budesonide 0.5 MG/2 ML Neb Susp NEB SCH (07:28)
[2019-08-02] MEDS: Insulin Lispro 100 Units/ML 3 ML Vial SUBCUT SCH ×2 (08:12→12:23)
[2019-08-02] MEDS: predniSONE 20 MG Tab PO SCH (08:14)
[2019-08-02] MEDS: Furosemide 20 MG Tab PO SCH (08:15)
[2019-08-02] MEDS: Glimepiride 2 MG Tab PO SCH (08:16)
[2019-08-02] MEDS: Nicotine 7 MG/24 Hr Patch TRDERM SCH (08:52)
[2019-08-02] MEDS: Potassium Chloride 10 MEQ Tab.ER PO SCH (08:58)
[2019-08-02] MEDS: Benzonatate 100 MG Cap PO SCH (08:59)
[2019-08-02] MEDS: Metoprolol Tartrate 25 MG Tab PO SCH (08:59)
[2019-08-02] MEDS: Enoxaparin 40 MG/0.4 ML Syringe SUBCUT SCH (09:00)
[2019-08-02] MEDS: Insulin Glarg,Human.Rec.Analog 100 UNIT/ML ML SUBCUT SCH (09:04)
--- NOTE | 2019-08-02 11:10 | PN ---
DATE: 08/02/2019 SUBJECTIVE: The patient continues to do well. Appetite is improved. Sleep has been good, and the patient denies any worsening of shortness of breath. Denies any chest pain, abdominal pain, or any other complaints. He is regaining his strength and actually he mentioned that he would like to go home today. OBJECTIVE: Vital Signs: Blood pressure is 145/80, pulse of 98, respiration of 28, saturation is 93% on 2.5 L per nasal cannula. Heart: Regular. No gallops. No rubs. Lungs: Diminished breath sounds bilaterally, but no significant crackles. No wheezing. Abdomen: Obese, but soft and nontender. Extremities: Remarkable for trace bilateral pedal edema. PLAN: We will discharge the patient home today as per the patient's request, and we will continue with oral antibiotics and continue prednisone for the next couple of days, and he would like to follow up with me at the clinic in 7 to 10 days, and we will recheck a chest x-ray during that time. CONDITION ON DISCHARGE: Improved. [facility] /[id number]
[2019-08-02 11:19] VITALS: BP 130/72; PULSE 91
--- NOTE | 2019-08-02 15:58 | DISCH ---
FINAL DIAGNOSES: 1. Right lobe pneumonia. 2. Chronic obstructive pulmonary disease exacerbation. 3. Systemic inflammatory response syndrome. 4. Hypoxemia. 5. Type 2 diabetes mellitus. 6. Coronary artery disease. BRIEF HISTORY OF PRESENT ILLNESS: Please see H and P, pertinent lab and x-ray during the hospitalization. Chest x-ray showed right lobe infiltrate. Blood cultures came back negative after 2 days. CBC on 08/01/2019; WBC is 14.2, hemoglobin is 12, hematocrit is 36. HOSPITAL COURSE: The patient was admitted to General Medicine floor. He was started on IV Rocephin as well as IV azithromycin and oral prednisone of 40 mg a day, and he was resumed on his home medication. The patient did well with the above regimen. Hospital course was uncomplicated, and the patient was subsequently discharged as per the patient's request. CONDITION ON DISCHARGE: Improved. DISCHARGE MEDICATIONS: He will be resumed on his home medication as well as his oxygen, and we will continue with Augmentin 875 b.i.d. for the next 7 days as well as prednisone 40 mg daily for the next 5 days. FOLLOWUP: He will be following up with me at the clinic in 7 to 10 days with a repeat chest x-ray to see the resolution of the infiltrate. [facility] /[id number]
[2019-08-03] MEDS ORDERED: Amoxicillin/Clavulanate K 875-125 MG Tab PO SCH (21:00)
[2019-08-05] MEDS ORDERED: Furosemide 20 MG Tab PO SCH (09:00)
== END 2019-08-02 14:35 | disposition home or self-care (01) | DRG 194 ==
LOC: DL.ED 21:06 → DL.MS 21:59 → UNDOADMIN 21:59 → DL.MS 07-31 20:01 → UNDODISIN 08-02 14:35
PROVIDERS: ADMIT Internal Medicine; ATTEND Internal Medicine
DX: J18.9 Pneumonia, unspecified organism (principal); I50.9 Heart failure, unspecified; J18.1 Lobar pneumonia, unspecified organism; R65.10 Systemic inflammatory response syndrome (SIRS) of non-infectious origin without acute organ dysfunction; J43.9 Emphysema, unspecified; E11.9 Type 2 diabetes mellitus without complications; F17.210 Nicotine dependence, cigarettes, uncomplicated; Z66 Do not resuscitate; Z99.81 Dependence on supplemental oxygen; R09.02 Hypoxemia; I25.10 Atherosclerotic heart disease of native coronary artery without angina pectoris; F41.9 Anxiety disorder, unspecified; Z79.82 Long term (current) use of aspirin; I25.2 Old myocardial infarction; Z85.46 Personal history of malignant neoplasm of prostate; Z79.4 Long term (current) use of insulin; Z79.899 Other long term (current) drug therapy; Z28.82 Immunization not carried out because of caregiver refusal
CPT/HCPCS: 36415; 51702; 71045; 80053; 83605; 83880; 85025; 87040; 96365; 96375; 99285; J1940; J1956; 80048; 81001; 82962; 94640; 97162-GP; 97166-GO; 97530-GP; 99284; A9270-GY; J0456; J0696; J1650; J1815; J1815-GY; J7050; J7620-GY

== ENCOUNTER 2020-06-27 15:21 | Emergency (ER) | payer MEDICARE, MEDICAID ==
[2020-06-27] MEDS ORDERED: Amoxicillin/Clavulanate K 875-125 MG Tab PO ONE ×2 (15:22→16:38)
[2020-06-27 15:35] VITALS: BP 98/76; PULSE 98
--- NOTE | 2020-06-27 15:51 | EDM.PDOC ---
ED HPI GENERAL MEDICAL PROBLEM - General Chief Complaint: General Stated Complaint: AMBULANCE Time Seen by Provider: 06/27/20 15:35 Source of Information: Reports: Patient History Limitations: Reports: No Limitations - History of Present Illness INITIAL COMMENTS - FREE TEXT/NARRATIVE: Patient is here today for blood in the toilet. He got up this morning and went to change his depends (which he wears all the time for urine and stool incontinence). When he got up from the toilet, he noted a lot of bright red blood in the toilet. He did not feel anything nor did he void while on the toilet. No abdominal pain. He has not had a bowel movement in 5-6 days which is abnormal for him, he usually goes every 2-3 days. No nausea or vomiting. He is feeling a little under the weather today with weakness, but thinks it is from losing the blood. Onset: Today - Related Data Allergies Allergy/AdvReac Type Severity Reaction Status Date / Time No Known Allergies Allergy Verified 06/27/20 15:35 Home Meds: Home Meds Insulin Glarg,Human.Rec.Analog [Lantus Solostar] 15 unit SUBCUT DAILY #5 pen 11/04/13 [Rx] Potassium Chloride [Klor-Con 10] 10 meq PO DAILY #30 tablet.er 11/04/13 [Rx] Aspirin [Adult Low Dose Aspirin EC] 81 mg PO BEDTIME 11/27/15 [History] Metoprolol Tartrate 12.5 mg PO DAILY 11/27/15 [History] Magnesium Oxide [Magnesium] 250 mg PO BEDTIME 05/15/17 [History] Benzonatate 100 mg PO TID 12/25/18 [History] Budesonide [Pulmicort] 0.5 mg NEB BID 12/25/18 [History] Ipratropium/Albuterol Sulfate [Iprat-Albut 0.5-3(2.5) mg/3 ml] 1 inh INH QID 12/25/18 [History] Furosemide [Lasix] 20 mg PO DAILY 06/27/20 [History] diphenhydrAMINE HCL [Z-Sleep] 25 mg PO BEDTIME 06/27/20 [History] Past Medical History HEENT History: Reports: None Cardiovascular History: Reports: None, Heart Failure Respiratory History: Reports: COPD Other Respiratory History: emphysema Gastrointestinal History: Reports: None Genitourinary History: Reports: Prostate Disorder Musculoskeletal History: Reports: None Neurological History: Reports: Other (See Below) Other Neuro History: unspecified palsy Psychiatric History: Reports: Anxiety Endocrine/Metabolic History: Reports: Diabetes, Type II Hematologic History: Reports: None Immunologic History: Reports: None Oncologic (Cancer) History: Reports: Basal Cell Carcinoma, Prostate Dermatologic History: Reports: Other (See Below) Other Dermatologic History: basal cell carcinoma - Infectious Disease History Infectious Disease History: Reports: None - Past Surgical History Head Surgeries/Procedures: Reports: None GI Surgical History: Reports: Hernia Repair/Other Social & Family History - Family History Family Medical History: Unobtainable Cardiac: Reports: Hypertension, [place] Oncologic: Reports: Other (See Below) Other Oncologic Family History: stomach - Caffeine Use Caffeine Use: Reports: Coffee ED ROS GENERAL - Review of Systems Review Of Systems: Comprehensive ROS is negative, except as noted in HPI. ED EXAM, GENERAL - Physical Exam Exam: See Below Exam Limited By: No Limitations General Appearance: Alert, WD/WN, No Apparent Distress Eye Exam: Bilateral Eye: Normal Inspection Ears: Normal External Exam Nose: Normal Inspection Head: Atraumatic, Normocephalic Neck: Normal Inspection, Supple, Non-Tender, Full Range of Motion Respiratory/Chest: No Respiratory Distress, Lungs Clear, Normal Breath Sounds, No Accessory Muscle Use, Chest Non-Tender Cardiovascular: Normal Peripheral Pulses, Regular Rate, Rhythm, No Edema, No Murmur GI/Abdominal: Normal Bowel Sounds, Soft, Non-Tender, No Mass. No: Rigid, Rebound (Male) Exam: Circumcised, Other (no blood at the meatus or on the depends). No: Inguinal Lymphadenopathy, Scrotal Swelling Rectal (Males) Exam: Normal Exam, Normal Rectal Tone. No: Bloody Stool, Fecal Impaction, Hemorrhoids, Rectal Fissure Back Exam: Normal Inspection Extremities: Normal Inspection, Normal Range of Motion, Normal Capillary Refill Neurological: Alert, No Motor/Sensory Deficits Psychiatric: Normal Affect, Normal Mood Skin Exam: Warm, Dry, Normal Color, No Rash, Wound/Incision (right posterior shoulder wound mildlly erythematous with purulent drainage. ) Lymphatic: No Adenopathy Course - Vital Signs Last Recorded V/S: Last Vital Signs Temp 97.7 F 06/27/20 15:32 Pulse 98 06/27/20 15:32 Resp 18 06/27/20 15:32 BP 98/76 06/27/20 15:32 Pulse Ox 99 06/27/20 15:32 - Orders/Labs/Meds Labs: Laboratory Tests 06/27/20 06/27/20 06/27/20 Range/Units 15:47 15:51 15:51 WBC 12.0 H (5.0-10.0) 10^3/uL RBC 4.36 L (4.6-6.2) 10^6/uL Hgb 13.1 L (14.0-18.0) g/dL Hct 37.9 L (40.0-54.0) % MCV 86.9 D (80-100) fL MCH 30.0 (27.0-34.0) pg MCHC 34.6 (33.0-35.0) g/dL Plt Count 265 (150-450) 10^3/uL Neut % (Auto) 77.0 H (42.2-75.2) % Lymph % (Auto) 15.2 L (20.5-50.1) % Payne % (Auto) 6.0 (2-8) % Eos % (Auto) 1.6 (1.0-3.0) % Baso % (Auto) 0.2 (0.0-1.0) % Sodium 133 L (136-145) mmol/L Potassium 3.9 (3.5-5.1) mmol/L Chloride 96 L (98-107) mmol/L Carbon Dioxide 30 (21-32) mmol/L Anion Gap 10.9 (7-13) mEq/L BUN 19 H (7-18) mg/dL Creatinine 1.15 (0.70-1.30) mg/dL Est Cr Clr Drug Dosing 49.67 mL/min Estimated GFR (MDRD) > 60 BUN/Creatinine Ratio 16.5 (No establ ref range) Glucose 167 H (74-99) mg/dL Calcium 8.8 (8.5-10.1) mg/dL Total Bilirubin 0.4 (0.2-1.0) mg/dL AST 15 (15-37) U/L ALT 20 (16-63) U/L Alkaline Phosphatase 135 H (46-116) U/L Total Protein 6.6 (6.4-8.2) g/dL Albumin 3.1 L (3.4-5.0) g/dL Globulin 3.5 Albumin/Globulin Ratio 0.89 Urine Color Yellow (YELLOW) Urine Appearance Slightly cloudy (CLEAR) Urine pH 5.5 (5.0-9.0) Ur Specific Glide 1.020 (1.005-1.030) Urine Protein Negative (NEGATIVE) Urine Glucose (UA) Negative (NEGATIVE) Urine Ketones Negative (NEGATIVE) Urine Occult Blood Negative (NEGATIVE) Urine Nitrite Negative (NEGATIVE) Urine Bilirubin Negative (NEGATIVE) Urine Urobilinogen 0.2 (0.2-1.0) mg/dL Ur Leukocyte Esterase Negative (NEGATIVE) Departure - Departure Time of Disposition: 16:28 Disposition: Home, Self-Care 01 Condition: Good Clinical Impression: Wound infection - Discharge Information Forms: ED Department Discharge Additional Instructions: Keep wound clean and dry Augmentin BID for 10 days. Take with food Call/return to the ER if symptoms worsen Follow up with your primary care provider in 3-5 days. Sepsis Event Note (ED) - Evaluation Sepsis Screening Result: No Definite Risk - Focused Exam Vital Signs: Vital Signs Temp Pulse Resp BP Pulse Ox 06/27/20 15:32 97.7 F 98 18 98/76 99
[2020-06-27 16:16] LABS: ANION GAP 10.9 mEq/L (7-13); CHLORIDE,CL 96 mmol/L (98-107); SODIUM,NA 133 mmol/L (136-145)
[2020-06-27] MEDS ORDERED: Amoxicillin/Clavulanate K 875-125 MG Tab ONE (16:40)
== END 2020-06-27 16:56 | disposition home or self-care (01) ==
LOC: DL.ED 15:21
DX: T81.49XA Infection following a procedure, other surgical site, initial encounter (principal); I50.9 Heart failure, unspecified; J43.9 Emphysema, unspecified; E11.9 Type 2 diabetes mellitus without complications; Z79.4 Long term (current) use of insulin; Z79.82 Long term (current) use of aspirin; Z79.899 Other long term (current) drug therapy
CPT/HCPCS: 36415; 80053; 81003; 82272; 85025; 99283; 99285; A9270